=== PATIENT | male | born 1935 | race American Indian/Alaskan Native ===

== ENCOUNTER 2018-03-10 07:34 | Emergency (ER) | payer MEDICARE, OTHER ==
[~2018-03-10] VITALS: Ht 167.6 cm; Wt 104.3 kg
[~2018-03-10 07:34] MED LIST: ASPI81EC PO; ATOR20 PO; CALC.25 PO; FOLI1 PO; GEMF600 PO; GLIP5 PO; HYDACE5 PO; LISI20 PO; LORA10ER PO; MECL25 PO; METO50ER PO; OMEG1CAP30 PO; PIOG15 PO; SODBIC650 PO; SPIHYD PO
[2018-03-10] MEDS ORDERED: Travatan Z5 ML OP (07:56)
[2018-03-10] MEDS ORDERED: CYCL0.05OP (07:56)
[2018-03-10] MEDS ORDERED: INSULANPEN SC (07:57)
== END 2018-03-10 09:10 | disposition home or self-care (01) ==
LOC: ER 07:34
DX: S50.01XA Contusion of right elbow, initial encounter (principal); W01.0XXA Fall on same level from slipping, tripping and stumbling without subsequent striking against object, initial encounter; Z88.8 Allergy status to other drugs, medicaments and biological substances; Z79.899 Other long term (current) drug therapy; Z79.82 Long term (current) use of aspirin; Z79.891 Long term (current) use of opiate analgesic; E78.00 Pure hypercholesterolemia, unspecified; E11.9 Type 2 diabetes mellitus without complications; Z87.891 Personal history of nicotine dependence
CPT/HCPCS: 73070; 99283-25

== ENCOUNTER 2018-09-02 17:10 | Emergency (ER) | payer MEDICARE, OTHER ==
[~2018-09-02] VITALS: Ht 167.6 cm; Wt 100.7 kg
[~2018-09-02 17:10] MED LIST changes: +CYCL0.05OP; +INSULANPEN SC; +Travatan Z5 ML OP; +Zithromax250 MG PO
[2018-09-02] MEDS ORDERED: CEPH500 PO (19:57)
== END 2018-09-02 20:26 | disposition home or self-care (01) ==
LOC: ER 17:10
DX: S51.811A Laceration without foreign body of right forearm, initial encounter (principal); M25.511 Pain in right shoulder; W01.198A Fall on same level from slipping, tripping and stumbling with subsequent striking against other object, initial encounter; Z88.7 Allergy status to serum and vaccine; Z88.8 Allergy status to other drugs, medicaments and biological substances; Z79.899 Other long term (current) drug therapy; Z79.82 Long term (current) use of aspirin; Z79.891 Long term (current) use of opiate analgesic; Z79.4 Long term (current) use of insulin; E78.00 Pure hypercholesterolemia, unspecified; I12.9 Hypertensive chronic kidney disease with stage 1 through stage 4 chronic kidney disease, or unspecified chronic kidney disease; E11.22 Type 2 diabetes mellitus with diabetic chronic kidney disease; N18.9 Chronic kidney disease, unspecified; Z87.891 Personal history of nicotine dependence
CPT/HCPCS: 73030; 99283

== ENCOUNTER 2021-11-09 16:22 | Emergency (ER) | payer MEDICARE, OTHER ==
[~2021-11-09] VITALS: Ht 167.6 cm; Wt 90.7 kg
[~2021-11-09 16:22] MED LIST changes: +CEPH500 PO
[2021-11-09 16:50] LABS: BASOPHILS ABSOLUTE AUTO 0.08 K/mm3 (0.00-0.23); BASOPHILS PERCENT AUTO 1 % (0-2); EOSINOPHILS PERCENT AUTO 2 % (0-6); Hematocrit 46.1 % (37.0-53.0); Hemoglobin 15.4 g/dL (13.5-17.5); IMMATURE GRAN ABSOLUTE AUTO 0.05 K/mm3 (0.00-0.10); IMMATURE GRAN PERCENT AUTO 1 % (0-1); LYMPHOCYTES ABSOLUTE AUTO 1.32 K/mm3 (0.84-5.20); LYMPHOCYTES PERCENT AUTO 12 % (21-46); MONOCYTES ABSOLUTE AUTO 0.95 K/mm3 (0.16-1.47); MONOCYTES PERCENT AUTO 9 % (4-13); Mean Corpuscular HGB 32.8 pg (26.0-34.0); Mean Corpuscular HGB Conc 33.4 g/dL (31.5-36.5); Mean Corpuscular Volume 98 fL (80-100); Mean Platelet Volume 11.5 fL (9.1-12.4); NEUTROPHILS ABSOLUTE AUTO 8.41 K/mm3 (1.96-9.15); NEUTROPHILS PERCENT AUTO 76 % (41-73); Platelet Count 254 K/mm3 (150-400); RDW Coefficient Variation 13.6 % (11.7-14.2); RDW Standard Deviation 49.2 fL (35.1-46.3); White Blood Cell Count 11.01 K/mm3 (4.00-11.30)
[2021-11-09 17:09] LABS: Albumin, Blood 3.6 g/dL (3.4-5.0); Albumin/Globulin Ratio 0.8 (0.8-1.8); Bilirubin, Total 0.3 mg/dL (0.1-1.0); Bun/Creatinine Ratio 22.4 (12.0-20.0); Calcium, Blood 9.3 mg/dL (8.5-10.1); Creatinine, Blood 3.12 mg/dL (0.60-1.20); Globulin, Blood 4.6 g/dL (2.2-4.0); Potassium, Blood 4.1 mmol/L (3.5-5.5); Total Protein, Blood 8.2 g/dL (6.4-8.2)
[2021-11-09 18:25] LABS: Source, Urine Clean Catch
[2021-11-09 18:30] LABS: Appearance, Urine Hazy (Clear); Bilirubin, Urine Neg (Neg); Blood, Urine 5+ (Neg); Color, Urine Yellow (P-Yellow); Glucose Qualitative, Urine Neg (Neg); Ketones, Urine Neg (Neg); Leukocyte Esterase, Urine Neg (Neg); Nitrite, Urine Neg (Neg); Protein, Urine 4+ (Neg); Urobilinogen, Urine NORM (Normal)
[2021-11-09 18:34] LABS: Bacteria Few /hpf; Hyaline Casts 0-2 /lpf (0-2); Red Blood Cells, Urine 50-100 /hpf (0-2); Squamous Epithelial Cells Few /hpf (Few); White Blood Cells, Urine 0-2 /hpf (0-5)
[2021-11-09] MEDS ORDERED: ONDA4ODT MM (19:10)
[2021-11-09] MEDS ORDERED: TAMS.4ER PO (19:11)
== END 2021-11-09 21:19 | disposition home or self-care (01) ==
LOC: ER 16:22
PROVIDERS: Physician Assistant
DX: N13.30 Unspecified hydronephrosis (principal); R31.29 Other microscopic hematuria; N50.812 Left testicular pain; E11.22 Type 2 diabetes mellitus with diabetic chronic kidney disease; I12.9 Hypertensive chronic kidney disease with stage 1 through stage 4 chronic kidney disease, or unspecified chronic kidney disease; N18.9 Chronic kidney disease, unspecified; E78.5 Hyperlipidemia, unspecified; Z87.891 Personal history of nicotine dependence; Z79.82 Long term (current) use of aspirin; Z79.899 Other long term (current) drug therapy; Z79.4 Long term (current) use of insulin
CPT/HCPCS: 36415; 74176; 76870; 80053; 81001; 85025; J1170; J2405; J7030

== ENCOUNTER → 2022-01-11 | Outpatient (CLI) | payer MEDICARE, OTHER ==
[~2022-01-11] MED LIST changes: +ONDA4ODT MM; +TAMS.4ER PO
[2022-01-11 16:53] LABS: Bun/Creatinine Ratio 20.4 (12.0-20.0); Calcium, Blood 8.5 mg/dL (8.5-10.1); Creatinine, Blood 5.15 mg/dL (0.60-1.20); Potassium, Blood 4.4 mmol/L (3.5-5.5)
== END ==
LOC: LAB SHORT 15:30
PROVIDERS: Physician Assistant
DX: R19.7 Diarrhea, unspecified (principal)
CPT/HCPCS: 80048

== ENCOUNTER → 2022-01-12 | Outpatient (CLI) | payer MEDICARE, OTHER ==
[2022-01-14 12:49] LABS: Adenovirus F 40/41 Not Detected (NOT DETECT); Astrovirus Not Detected (NOT DETECT); Campylobacter Sp Not Detected (NOT DETECT); Cryptosporidium Not Detected (NOT DETECT); Cyclospora Cayetanensis Not Detected (NOT DETECT); E. Coli O157 Not Detected (NOT DETECT); Entamoeba Histolytica Not Detected (NOT DETECT); Enteroaggregative E. coli-EAEC Not Detected (NOT DETECT); Enteropathogenic E. coli-EPEC Not Detected (NOT DETECT); Enterotoxigenic E. coli-ETEC Not Detected (NOT DETECT); Giardia Lamblia Not Detected (NOT DETECT); Norovirus GI/GII Not Detected (NOT DETECT); Plesiomonas Shigelloides Not Detected (NOT DETECT); Rotavirus A Not Detected (NOT DETECT); Salmonella Sp Not Detected (NOT DETECT); Sapovirus Not Detected (NOT DETECT); Shiga Toxin-prod E. coli-STEC Not Detected (NOT DETECT); Shigella/Enteroin E. coli-EIEC Not Detected (NOT DETECT); Vibrio Cholerae Not Detected (NOT DETECT); Vibrio Sp Not Detected (NOT DETECT); Yersinia Enterocolitica Not Detected (NOT DETECT)
== END | disposition home or self-care (01) ==
LOC: LAB 09:39 → LAB SHORT 09:39
PROVIDERS: Physician Assistant
DX: R19.7 Diarrhea, unspecified (principal)
CPT/HCPCS: 87507

== ENCOUNTER 2022-01-22 08:48 | Inpatient (IN) | payer MEDICARE, OTHER ==
[~2022-01-22] VITALS: Ht 167.6 cm; Wt 90.7 kg
[~2022-01-22 08:48] MED LIST changes: +ALLO300 PO; +ASPI81CH PO; -ASPI81EC PO; +DONEPEZIL HCL5 M1 PO; +FURO40 PO; +HYDROCHLOROTHIA25 MG PO; +MEMA10 PO; +METO50 PO
[2022-01-22 09:55] LABS: BASOPHILS ABSOLUTE AUTO 0.07 K/mm3 (0.00-0.23); BASOPHILS PERCENT AUTO 1 % (0-2); EOSINOPHILS ABSOLUTE AUTO 0.81 K/mm3 (0.00-0.68); EOSINOPHILS PERCENT AUTO 7 % (0-6); Hematocrit 38.4 % (37.0-53.0); IMMATURE GRAN ABSOLUTE AUTO 0.07 K/mm3 (0.00-0.10); IMMATURE GRAN PERCENT AUTO 1 % (0-1); LYMPHOCYTES ABSOLUTE AUTO 1.06 K/mm3 (0.84-5.20); LYMPHOCYTES PERCENT AUTO 10 % (21-46); MONOCYTES ABSOLUTE AUTO 0.77 K/mm3 (0.16-1.47); MONOCYTES PERCENT AUTO 7 % (4-13); Mean Corpuscular HGB 33.2 pg (26.0-34.0); Mean Corpuscular HGB Conc 33.9 g/dL (31.5-36.5); Mean Corpuscular Volume 98 fL (80-100); Mean Platelet Volume 11.5 fL (9.1-12.4); NEUTROPHILS ABSOLUTE AUTO 8.17 K/mm3 (1.96-9.15); NEUTROPHILS PERCENT AUTO 75 % (41-73); Platelet Count 243 K/mm3 (150-400); RDW Coefficient Variation 14.7 % (11.7-14.2); Red Blood Cell Count 3.92 M/mm3 (4.30-5.90); White Blood Cell Count 10.95 K/mm3 (4.00-11.30)
[2022-01-22 10:27] LABS: Albumin, Blood 2.9 g/dL (3.4-5.0); Albumin/Globulin Ratio 0.6 (0.8-1.8); Bilirubin, Total 0.2 mg/dL (0.1-1.0); Bun/Creatinine Ratio 20.8 (12.0-20.0); Calcium, Blood 8.7 mg/dL (8.5-10.1); Creatinine, Blood 6.64 mg/dL (0.60-1.20); Globulin, Blood 4.6 g/dL (2.2-4.0); Potassium, Blood 6.3 mmol/L (3.5-5.5); Total Protein, Blood 7.5 g/dL (6.4-8.2)
[2022-01-22] MEDS ORDERED: ACIT10CA PO (11:08)
[2022-01-22] MEDS ORDERED: VITAMIN D325 MC3 PO (11:09)
[2022-01-22] MEDS ORDERED: FOLI1 PO (11:10)
[2022-01-22] MEDS ORDERED: SYNTHROID PO (11:10)
[2022-01-22] MEDS ORDERED: MERIBIN5 MG PO (11:10)
[2022-01-22] MEDS ORDERED: LIPITOR80 MG PO (11:11)
[2022-01-22] MEDS ORDERED: DOCU100 PO (11:12)
[2022-01-22] MEDS ORDERED: FISH OIL GUMMI1 EAC1 PO (11:12)
[2022-01-22] MEDS ORDERED: CYCL0.05OP BOTHEYES (11:22)
[2022-01-22] MEDS ORDERED: APHEN325 M2 PO (11:22)
[2022-01-22] MEDS ORDERED: LOW DOSE ASPIRI81 M1 PO (11:24)
[2022-01-22] MEDS ORDERED: INSULANI SC (11:24)
[2022-01-22] MEDS ORDERED: HYDROCODONE-AC1 EAC7 PO (11:25)
--- NOTE | 2022-01-22 14:18 | NUR ---
ASSUMED CARE: PT ARRIVES FROM ED. PERMACATH TO RIGHT CHEST PLACED YESTERDAY PER DR CARROLL. DIALYSIS NURSE CALLED AND STATED SHE WOULD BE IN TO RUN PT FOR DIALYSIS SHORTLY. CALL TO HOSPITALIST TO VERIFY IF TELE IS NEEDED. OCTAVIO STATES NO TELE NEEDED AT THIS TIME. PT C/O ACHING T/O AND STATES HISTORY OF ARTHRITIC PAIN. HOME PAIN MEDS REORDERED. DISCUSSED CURRENT ORDERS WITH PT AND AND INSTRUCTED TO BRING IN HOME MEDS. CALL LIGHT IN REACH, DENIED FURTHER NEEDS OR CONCERNS AT THIS TIME.
--- NOTE | 2022-01-22 18:13 | NUR ---
SHIFT SUMMARY: PT RECIEVED DIALYSIS THIS EVENING. CHART CHANGER AWARE THAT PT IS NEW DIALYSIS PT SO THAT A CHAIR TIME AT [facility] CAN BE ESTABLISHED. PT'S EVENING CBG WAS IN 70S. CALL TO DR JENKINS WHO STATED TO HOLD EVENING DOSE, RECHECK CBG AT HS AND ADMINISTER LONG ACTING INSULIN THEN IF CBG INCREASED. ALSO INSTRUCTS TO CHECK CBG AT 3AM. ORDER IN PLACE. AT BEDSIDE. NO ACUTE NEEDS OR CONCERNS AT THIS TIME.
--- NOTE | 2022-01-23 03:22 | NUR ---
PT ALERT TO SELF, PLACE AND SITUATION. PT STATES IT IS FEBRUARY 1969 AND WHEN GIVEN THE CORRECT DATE HE STATES "ITS NOT TOO FAR OFF." PT IS NOTED TO BE VERY IMPATIENT AND DEMANDING. HE IS IMPULSIVE AND DOES NOT USE HIS CALL LIGHT. PT STATING MULTIPLE TIMES THAT HE IS ALONE IN HIS ROOM. EXPLAINED THAT STAFF WOULD CHECK ON HIM OFTEN AND SHOWN HOW TO USE CALL LIGHT. WHEN BED ALARM GOES OFF PT STATES HE WAS NOT SHOWN HOW TO CALL AND THEN WHEN REMINDED HE STATES HE PRESSED IT BUT "IT DIDN'T WORK." PT NOTED VERY ANXIOUS AT BEDTIME DEMANDING SOMETHING TO "PUT HIM OUT" BC HE CAN'T SLEEP. HE STATES AT HOME HE DOES NOT TAKE ANYTHING BUT BEING IN THE HOSPITAL ALONE IS DIFFERENT. DR. PALACIOS NOTIFIED WITH ORDER OF MELATONIN X1 WITH GOOD EFFECT. PT UNSTEADY WITH WALKER. VOIDING W/ISSUE. PERMA CATH TO RIGHT CHEST INTACT.
[2022-01-23 05:53] LABS: Hematocrit 35.1 % (37.0-53.0); Hemoglobin 12.2 g/dL (13.5-17.5)
[2022-01-23 06:19] LABS: Albumin, Blood 2.7 g/dL (3.4-5.0); Anion Gap 13 mmol/L (6-16); Blood Urea Nitrogen 85 mg/dL (8-24); Bun/Creatinine Ratio 18.6 (12.0-20.0); CO2, Blood 25 mmol/L (21-32); Calcium, Blood 8.5 mg/dL (8.5-10.1); Chloride, Blood 101 mmol/L (98-108); Creatinine, Blood 4.56 mg/dL (0.60-1.20); Glomerular Filtration Rate 12 (60-); Glucose, Blood 134 mg/dL (70-99); Magnesium, Blood 1.5 mg/dL (1.6-2.4); Phosphorus, Blood 6.1 mg/dL (2.5-4.9); Potassium, Blood 4.2 mmol/L (3.5-5.5); Sodium, Blood 139 mmol/L (136-145)
--- NOTE | 2022-01-23 17:36 | NUR ---
PT AOX3 AND COOPERATIVE OF CARE. PT WILL USE CALL LIGHT AND THEN OTHER TIMES CAN BE IMPULSIVE. PT HAS BED ALARM IN PLACE. DIALYSIS WAS RAN TODAY AND PT SEEMED TO TOLERATE WELL. PT DENIES PAIN AT THIS TIME WILL CONTINUE TO MONITOR.
[2022-01-24 05:17] LABS: Hematocrit 36.1 % (37.0-53.0); Hemoglobin 12.4 g/dL (13.5-17.5)
[2022-01-24 05:36] LABS: Albumin, Blood 2.6 g/dL (3.4-5.0); Anion Gap 10 mmol/L (6-16); Blood Urea Nitrogen 57 mg/dL (8-24); Bun/Creatinine Ratio 14.2 (12.0-20.0); CO2, Blood 31 mmol/L (21-32); Calcium, Blood 8.7 mg/dL (8.5-10.1); Chloride, Blood 97 mmol/L (98-108); Glomerular Filtration Rate 14 (60-); Glucose, Blood 135 mg/dL (70-99); Magnesium, Blood 1.8 mg/dL (1.6-2.4); Phosphorus, Blood 5.4 mg/dL (2.5-4.9); Potassium, Blood 3.9 mmol/L (3.5-5.5); Sodium, Blood 138 mmol/L (136-145)
--- NOTE | 2022-01-24 06:46 | NUR ---
PT REMAINS ALERT TO SELF AND PLACE. MOOD FLUCTUATES GREATLY AT TIMES PT IS VERY APPROACHABLE AND OTHERS PT IS YELLING, IMPATIENT AND DEMANDS THINGS BE DONE NOW. PT DOES NOT UNDERSTAND THAT THERE ARE OTHER PTS AND WHEN TOLD THIS PT REPLIES THAT HE IS THE ONLY ONE AWAKE NOW. OTHERWISE NO NEW CHANGES T/O SHIFT. UNSTEADY DURING NIGHTS AND BED ALARM IN PLACE. PT IS IMPULSIVE AND DOES NOT CALL.
[2022-01-24] MEDS ORDERED: FURO40 PO (12:20)
[2022-01-24] MEDS ORDERED: CALCIUM ACETAT667 MG PO (12:21)
--- NOTE | 2022-01-24 13:01 | NUR ---
DISCHARGE PT A&OX3, SPOUSE @ BEDSIDE DURING DC DIRECTION. PROVIDED W/ WRITTEN AND VERBAL DIRECTION, VERBALIZED UNDERWSTANDING. SKIN TEAR TO R FA REDRESSED AND IV DC'ED. PT ESCORTED TO [facility] VIA WC BY DALIA GONZALEZ. SPOUSE TO PROVIDE TRANSPORT, PLAN FOR HD APPT @ 7721.
[2022-01-25 00:07] LABS: HBSAG SCREEN Negative (Negative); HCV AB 0.1 (0.0-0.9); HEP A AB, IGM Negative (Negative); HEP B CORE AB, TOT Negative (Negative)
== END 2022-01-24 12:58 | disposition home or self-care (01) | DRG 683 ==
LOC: ER 08:48 → MEDS 08:49
PROVIDERS: Internal Medicine; Internal Medicine Nephrology; Physician Assistant; ADMIT Hospitalist
PROC: 5A1D70Z Performance of Urinary Filtration, Intermittent, Less than 6 Hours Per Day (ICD-10-PCS; principal; 2022-01-23)
DX: N17.9 Acute kidney failure, unspecified (principal); E87.2 Acidosis; I12.0 Hypertensive chronic kidney disease with stage 5 chronic kidney disease or end stage renal disease; N18.6 End stage renal disease; E11.22 Type 2 diabetes mellitus with diabetic chronic kidney disease; N40.0 Benign prostatic hyperplasia without lower urinary tract symptoms; E78.5 Hyperlipidemia, unspecified; E87.5 Hyperkalemia; D63.1 Anemia in chronic kidney disease; E03.9 Hypothyroidism, unspecified; F03.90 Unspecified dementia, unspecified severity, without behavioral disturbance, psychotic disturbance, mood disturbance, and anxiety; E78.00 Pure hypercholesterolemia, unspecified; H18.519 Endothelial corneal dystrophy, unspecified eye; G89.29 Other chronic pain; Z87.891 Personal history of nicotine dependence; Z90.49 Acquired absence of other specified parts of digestive tract; Z98.890 Other specified postprocedural states; Z88.7 Allergy status to serum and vaccine; Z88.8 Allergy status to other drugs, medicaments and biological substances; Z79.4 Long term (current) use of insulin; Z79.899 Other long term (current) drug therapy
CPT/HCPCS: 36415; 71045; 80053; 80069; 82947; 83735; 85014; 85018; 85025; 86317; 86704; 86708; 86803; 87340; 93005; 93010; 96365; 96372; 99284-25; A9270; G0378; J1644; J1815; J3475; J7060; J7799

== ENCOUNTER 2022-03-01 14:25 | Inpatient (IN) | payer MEDICARE, OTHER ==
[~2022-03-01] VITALS: Ht 167.6 cm; Wt 90.7 kg
[~2022-03-01 14:25] MED LIST changes: +ACIT10CA PO; +APHEN325 M2 PO; +CALCIUM ACETAT667 MG PO; +CYCL0.05OP BOTHEYES; +DOCU100 PO; +FISH OIL GUMMI1 EAC1 PO; +HYDROCODONE-AC1 EAC7 PO; +INSULANI SC; +LIPITOR80 MG PO; -LISI20 PO; +LOW DOSE ASPIRI81 M1 PO; +MERIBIN5 MG PO; +Prinivil10 MG PO; +SYNTHROID PO; +VITAMIN D325 MC3 PO
[2022-03-01 14:56] LABS: BASOPHILS ABSOLUTE AUTO 0.06 K/mm3 (0.00-0.23); BASOPHILS PERCENT AUTO 1 % (0-2); EOSINOPHILS ABSOLUTE AUTO 0.12 K/mm3 (0.00-0.68); EOSINOPHILS PERCENT AUTO 2 % (0-6); Hematocrit 35.8 % (37.0-53.0); Hemoglobin 12.5 g/dL (13.5-17.5); IMMATURE GRAN ABSOLUTE AUTO 0.01 K/mm3 (0.00-0.10); IMMATURE GRAN PERCENT AUTO 0 % (0-1); LYMPHOCYTES ABSOLUTE AUTO 0.89 K/mm3 (0.84-5.20); LYMPHOCYTES PERCENT AUTO 12 % (21-46); MONOCYTES PERCENT AUTO 8 % (4-13); Mean Corpuscular HGB Conc 34.9 g/dL (31.5-36.5); Mean Corpuscular Volume 97 fL (80-100); NEUTROPHILS ABSOLUTE AUTO 5.52 K/mm3 (1.96-9.15); NEUTROPHILS PERCENT AUTO 77 % (41-73); Platelet Count 227 K/mm3 (150-400); RDW Coefficient Variation 13.5 % (11.7-14.2); RDW Standard Deviation 47.5 fL (35.1-46.3); Red Blood Cell Count 3.68 M/mm3 (4.30-5.90)
[2022-03-01 15:32] LABS: Albumin, Blood 3.4 g/dL (3.4-5.0); Albumin/Globulin Ratio 0.8 (0.8-1.8); Bilirubin, Total 0.3 mg/dL (0.1-1.0); Bun/Creatinine Ratio 10.3 (12.0-20.0); Calcium, Blood 9.1 mg/dL (8.5-10.1); Creatinine, Blood 3.12 mg/dL (0.60-1.20); Globulin, Blood 4.1 g/dL (2.2-4.0); Potassium, Blood 3.9 mmol/L (3.5-5.5); Total Protein, Blood 7.5 g/dL (6.4-8.2)
[2022-03-01 20:49] LABS: Anti-Xa UFH, PHA Monitoring <0.10 IU/mL; International Normalized Ratio 1.05
--- NOTE | 2022-03-02 00:55 | NUR ---
PT ARRIVED TO THE FLOOR AROUND 2124 PT WAS VERY AGITATED AND SAID HE HAD TO URINATE. GAVE URINAL AND HAD PT STAT AT SIDE OF RFORT HOWARD PT DID STUMBLE AND WAS UNSTEADY. PT GOT UPSET BECAUSE IV LINE WAS TANGLED IN CORDS FOR MONITOR RN ATTEMPTING TO GET IT UNTANGLED AND PT STARTED YELLING THAT HE WANTED TO PEE AND GO TO THE BATHROOM AND EVERYONE GET OUT OF HIS ROOM AND HE THREW THE URINAL AT THE GURNEY. RN ASKED PT TO PLEASE SIT DOWN HE WAS WABBLING WHILE STANDING. PT GOT MORE AGITATED WAS SAYING STAFF WAS RUDE AND JUST TRYING TO BOSS HIM AROUND AND NOT LET HIM GO TO THE BATHROOM. RN TALKED WITH PT EDUCATED ABOUT HEPARIN GTTS AND THAT HE WAS IN HOSPITAL FOR NSTEMI AND HAD TO BE CAREFUL HE WAS UNSTEADY AND HE COULD FALL OR PULL OUT IV SO NEEDED TO ASSIST HIM TO THE BATHROOM. PT TOLD RN TO PUT HIM IN THE BED AND GET OUT OF HIS ROOM AND ONCE RN WAS GONE HE WOULD PULL OUT IV AND ALL LINES AND GO TO THE BATHROOM. RN TALKED ABOUT SAFETY BUT PT WAS AGITATED AND NOT COOPERATIVE. ACCESS SERVICES LIBRARIAN CAME IN AND TALKED WITH PT AND TRIED TO COMPRIMISE ASKING IF PT WOULD SIT ON COMMODE AND STAFF WOULD STEP OUT OR SIT ON TOILET SO HE WOULDNT FALL. PT SAID SURE ILL SIT AND WHEN YOU CLOSE THE DOOR ILL STAND UP AND PEE. SECURITY CAME IN PT WAS YELLING AND TELLING STAFF TO GET THE HELL OUT OF HIS ROOM. SECURITY ESCORTED PT TO THE BATHROOM. PT URINATED AND WAS ASSISTED BACK TO BED BY RN. 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 RN EXPLAINED AGAIN THAT IT WAS FOR HIS SAFETY SO THAT IV WAS NOT ACCIDENTLY DISLODGED CAUSING BLEEDING AND RISK OF INFECTION ALSO EXPLAINED THAT GIVEN HE WAS THERE FOR NSTEMI HE WAS UNSTEADY AND COULD POTENTIALLY FALL. PT DID NOT AGREE FELT STAFF WAS BEING UNREASONABLY BOSSY AND MEAN. WILL CONTINUE TO MONITOR AND EDUCATE PT ALLOWS. PT IN BED ON LEFT SIDE. BED ALARM IN PLACE.
--- NOTE | 2022-03-02 01:04 | NUR ---
PT NOW PLEASANT AND COOPERATIVE WITH STAFF. NO LONGER AGITATED. HE IS ORIENTED X 4 AND GIVES ACCURATE HEALTH HISTORY. WILL CONTINUE TO MONITOR PT.
[2022-03-02 03:27] LABS: BASOPHILS ABSOLUTE AUTO 0.09 K/mm3 (0.00-0.23); BASOPHILS PERCENT AUTO 1 % (0-2); EOSINOPHILS PERCENT AUTO 4 % (0-6); Hematocrit 33.6 % (37.0-53.0); Hemoglobin 11.2 g/dL (13.5-17.5); IMMATURE GRAN ABSOLUTE AUTO 0.03 K/mm3 (0.00-0.10); IMMATURE GRAN PERCENT AUTO 0 % (0-1); LYMPHOCYTES ABSOLUTE AUTO 2.04 K/mm3 (0.84-5.20); LYMPHOCYTES PERCENT AUTO 24 % (21-46); MONOCYTES ABSOLUTE AUTO 1.15 K/mm3 (0.16-1.47); MONOCYTES PERCENT AUTO 14 % (4-13); Mean Corpuscular HGB 33.2 pg (26.0-34.0); Mean Corpuscular HGB Conc 33.3 g/dL (31.5-36.5); Mean Corpuscular Volume 100 fL (80-100); Mean Platelet Volume 11.1 fL (9.1-12.4); NEUTROPHILS ABSOLUTE AUTO 4.75 K/mm3 (1.96-9.15); NEUTROPHILS PERCENT AUTO 57 % (41-73); Platelet Count 205 K/mm3 (150-400); RDW Coefficient Variation 13.3 % (11.7-14.2); RDW Standard Deviation 48.9 fL (35.1-46.3); Red Blood Cell Count 3.37 M/mm3 (4.30-5.90); White Blood Cell Count 8.36 K/mm3 (4.00-11.30)
[2022-03-02 03:44] LABS: Albumin/Globulin Ratio 0.8 (0.8-1.8); Bilirubin, Total 0.3 mg/dL (0.1-1.0); Bun/Creatinine Ratio 10.8 (12.0-20.0); Calcium, Blood 8.7 mg/dL (8.5-10.1); Creatinine, Blood 3.79 mg/dL (0.60-1.20); Globulin, Blood 3.6 g/dL (2.2-4.0); Magnesium, Blood 1.9 mg/dL (1.6-2.4); Phosphorus, Blood 5.2 mg/dL (2.5-4.9); Potassium, Blood 3.6 mmol/L (3.5-5.5); Total Protein, Blood 6.6 g/dL (6.4-8.2)
--- NOTE | 2022-03-02 05:35 | NUR ---
PT NEW ADMIT FROM ER LAST NIGHT NSTEMI. ON HEPARIN GTT AT 14 UNITS. CARDIOLOGY TO SEE HIM TODAY POSSIBLY GO FOR ANGIOGRAM. PT HAS BEEN NPO SINCE 0000. PT GETS EASILY AGITATED. HE IS SBA TO THE BATHROOM VOIDS IN TOILET REFUSES TO USE URINAL AND DOES NOT WANT HAT IN TOILET EITHER. VS STABLE. WILL GIVE REPORT TO ONCOMING RN.
[2022-03-02 10:12] LABS: SARS-Cov-2 (COVID-19) PCR, MMC NEGATIVE (NEGATIVE)
--- NOTE | 2022-03-02 10:15 | NUR ---
NURSING PCU DAYSHIFT: Assumed care of pt at approx 0700. A/O, initially abrupt with nursing/pct staff and only cooperative w/some aspects of care. Stated desire to leave, discussed leaving AMA option and expectations in behavior w/staff if pt is to remain in unit for care. Pt verbalized understanding and has been cooperative t/o remainder of morning. Ambulates independently and only requires assistance for line management, gate steady. Denies any pain/discomfort at rest. Skin fragile/pale, no significant breakdown noted. Allowed limited assesment to be performed. Tele in place, NSR, no c/o CP/pressure, SBP 170's prior to a.m. meds, no noted edema. L/S cta t/o, O2 sat upper 90's on RA, denies dyspnea, no noted cough. No reported difficulties voiding, last BM was this a.m. PIV x1, hep gtt infusing as per pharmacy dosing. No s/s of acute distress this a.m. PMD and property adjuster at bedside to discuss plan of care. Plan for angiogram this a.m. S/O currently at bedside, denies any questions/needs. Call light in reach, cont to monitor for any changes.
--- NOTE | 2022-03-02 17:09 | NUR ---
NURSING PCU DAYSHIFT SUMMARY: Pt to HC at approx 1100, returned to room at approx 1200 w/TR band and wrist board to R radial. Software Test Analyst at bedside to provide pt, spouse, and daugther w/an update regarding plan for f/u angiogram either 03/03 or 03/04. Family verbalized understanding. HD started in room after angiogram, pt tolerated well. R radial site has remained stable since procedure, deflation began at completion of HD (approx 1645). VS have remained stable and pt has been w/o c/o CP/pressure. No s/s of acute distress at this time. Pt denies any current needs or questions regarding plan of care. Call light in reach. Cont to monitor until rpt is given to ENMA RN.
[2022-03-03 01:18] LABS: Hematocrit 33.5 % (37.0-53.0); Hemoglobin 11.1 g/dL (13.5-17.5)
[2022-03-03 01:34] LABS: Albumin, Blood 2.9 g/dL (3.4-5.0); Anion Gap 8 mmol/L (6-16); Blood Urea Nitrogen 32 mg/dL (8-24); Bun/Creatinine Ratio 9.2 (12.0-20.0); CO2, Blood 32 mmol/L (21-32); Calcium, Blood 8.9 mg/dL (8.5-10.1); Chloride, Blood 97 mmol/L (98-108); Creatinine, Blood 3.48 mg/dL (0.60-1.20); Glomerular Filtration Rate 16 (60-); Glucose, Blood 166 mg/dL (70-99); Magnesium, Blood 1.6 mg/dL (1.6-2.4); Phosphorus, Blood 3.9 mg/dL (2.5-4.9); Potassium, Blood 4.1 mmol/L (3.5-5.5); Sodium, Blood 137 mmol/L (136-145)
--- NOTE | 2022-03-03 05:07 | NUR ---
HOT ROOM ATTENDANT SUMMARY PT IS ALERT AND ORIENTED COMMUNICATING APPROPRIATELY W STAFF THIS SHIFT. PT HAS DENIED ANY CP, PRESSURE, NAUSEA OR DIZZINESS THIS SHIFT. PT DID REPORT SOME MILD GENERALIZED PAIN AT THE START OF THE SHIFT WHICH WAS RESOLVED W MEDICATION PER EMAR. BP WNL AND STABLE THIS SHIFT. TELE SHOWING SR IN THE 80'S THIS SHIFT. TR BAND OFF AT THE START OF THE SHIFT, PT DEVELOPED SMALL HEMATOMA ON WRIST INITIALLY BUT DID NOT GET WORSE OVER THE SHIFT. PT DENIED ANY PAIN OR TENDERNESS AROUND ANGIO SITE. O2 SATS >90% ON RM AIR THIS SHIFT. PT NPO SINCE MIDNIGHT FOR POSSIBLE PROCEDURE. WILL REPORT TO ONCOMING RN.
--- NOTE | 2022-03-03 16:28 | NUR ---
REPORT CALLED TO NICOLA AT [facility]. NOTIFIED OF RECIEVING ROOM FOR PATIENT. NEW BAG OF HEPARIN INFUSING IN PREPARTION FOR FLIGHT. ALL PT BELONGINGS PACKED UP TO GO WITH HIM. PT HAS DECLINED ANY CHEST PAIN OR SOB. R RADIAL SITE REMAINS BRUISED BUT NO CHANGES SINCE PREVIOUS SHIFT OUTLINES. PT TOLERATING PO WELL AND HAS BEEN COOPERATIVE WITH CARE TODAY.
--- NOTE | 2022-03-03 17:07 | NUR ---
PT LEFT WITH REACH TEAM AT THIS TIME. REPORT GIVEN TO NIKOLAY WITH REACH. ALL BELONGINGS SENT WITH PATIENT.
== END 2022-03-03 17:06 | disposition short-term general hospital (02) | DRG 280 ==
LOC: ER 14:25 → PCU 19:22
PROVIDERS: Internal Medicine Interventional Cardiology; Internal Medicine Nephrology; Nurse Practitioner Acute Care; Student in an Organized Health Care Education/Training Program; ADMIT Family Medicine
PROC: 02HV33Z Insertion of Infusion Device into Superior Vena Cava, Percutaneous Approach (ICD-10-PCS; 2022-03-01)
PROC: 02JA3ZZ Inspection of Heart, Percutaneous Approach (ICD-10-PCS; principal; 2022-03-02)
PROC: 4A023N6 Measurement of Cardiac Sampling and Pressure, Right Heart, Percutaneous Approach (ICD-10-PCS; 2022-03-02)
PROC: B2111ZZ Fluoroscopy of Multiple Coronary Arteries using Low Osmolar Contrast (ICD-10-PCS; 2022-03-02)
PROC: 5A1D70Z Performance of Urinary Filtration, Intermittent, Less than 6 Hours Per Day (ICD-10-PCS; 2022-03-02)
DX: I21.4 Non-ST elevation (NSTEMI) myocardial infarction (principal); N18.6 End stage renal disease; F11.20 Opioid dependence, uncomplicated; I12.0 Hypertensive chronic kidney disease with stage 5 chronic kidney disease or end stage renal disease; F03.91 Unspecified dementia, unspecified severity, with behavioral disturbance; N25.81 Secondary hyperparathyroidism of renal origin; E87.1 Hypo-osmolality and hyponatremia; E78.00 Pure hypercholesterolemia, unspecified; G89.29 Other chronic pain; I25.10 Atherosclerotic heart disease of native coronary artery without angina pectoris; E03.9 Hypothyroidism, unspecified; M10.9 Gout, unspecified; N40.0 Benign prostatic hyperplasia without lower urinary tract symptoms; E11.22 Type 2 diabetes mellitus with diabetic chronic kidney disease; I35.0 Nonrheumatic aortic (valve) stenosis; I24.9 Acute ischemic heart disease, unspecified; I48.91 Unspecified atrial fibrillation; E87.70 Fluid overload, unspecified; Z20.822 Contact with and (suspected) exposure to COVID-19; H18.519 Endothelial corneal dystrophy, unspecified eye; D63.1 Anemia in chronic kidney disease; Z90.49 Acquired absence of other specified parts of digestive tract; Z98.890 Other specified postprocedural states; Z94.7 Corneal transplant status; Z79.899 Other long term (current) drug therapy; Z79.811 Long term (current) use of aromatase inhibitors; Z79.02 Long term (current) use of antithrombotics/antiplatelets; Z79.82 Long term (current) use of aspirin; Z87.891 Personal history of nicotine dependence; Z79.01 Long term (current) use of anticoagulants; Z79.4 Long term (current) use of insulin; Z99.2 Dependence on renal dialysis; Z88.8 Allergy status to other drugs, medicaments and biological substances; Z95.828 Presence of other vascular implants and grafts; Z88.7 Allergy status to serum and vaccine
CPT/HCPCS: 36415; 71045; 76937; 80053; 80069; 82947; 83735; 84100; 84484; 85014; 85018; 85025; 85347; 85520; 85610; 85730; 93005; 93010; 93308; 93321; 93454; 96365; 99152; 99153; 99285-25; A9270; C1725; C1751; C1769; C1887; C1894; J0461; J1644; J1815; J2250; J3010; J7030; J7040; Q9967; U0004

== ENCOUNTER 2022-05-22 16:01 | Inpatient (IN) | payer MEDICARE, OTHER ==
[~2022-05-22] VITALS: Ht 167.6 cm; Wt 87.9 kg
[~2022-05-22 16:01] MED LIST changes: +LEVSOD25 PO; -SYNTHROID PO
[2022-05-22 17:06] LABS: BASOPHILS ABSOLUTE AUTO 0.03 K/mm3 (0.00-0.23); BASOPHILS PERCENT AUTO 1 % (0-2); EOSINOPHILS ABSOLUTE AUTO 0.01 K/mm3 (0.00-0.68); EOSINOPHILS PERCENT AUTO 0 % (0-6); Hematocrit 35.3 % (37.0-53.0); Hemoglobin 11.9 g/dL (13.5-17.5); IMMATURE GRAN ABSOLUTE AUTO 0.03 K/mm3 (0.00-0.10); IMMATURE GRAN PERCENT AUTO 1 % (0-1); LYMPHOCYTES PERCENT AUTO 8 % (21-46); MONOCYTES PERCENT AUTO 12 % (4-13); Mean Corpuscular HGB 33.2 pg (26.0-34.0); Mean Corpuscular HGB Conc 33.7 g/dL (31.5-36.5); Mean Corpuscular Volume 99 fL (80-100); Mean Platelet Volume 10.8 fL (9.1-12.4); NEUTROPHILS ABSOLUTE AUTO 5.17 K/mm3 (1.96-9.15); NEUTROPHILS PERCENT AUTO 79 % (41-73); Platelet Count 199 K/mm3 (150-400); RDW Coefficient Variation 13.1 % (11.7-14.2); Red Blood Cell Count 3.58 M/mm3 (4.30-5.90); White Blood Cell Count 6.54 K/mm3 (4.00-11.30)
[2022-05-22 17:09] LABS: Source, Urine Voided
[2022-05-22 17:18] LABS: Appearance, Urine Clear (Clear); Bilirubin, Urine Neg (Neg); Blood, Urine 3+ (Neg); Color, Urine Yellow (P-Yellow); Glucose Qualitative, Urine Neg (Neg); Ketones, Urine Neg (Neg); Leukocyte Esterase, Urine Neg (Neg); Nitrite, Urine Neg (Neg); Protein, Urine 4+ (Neg); Specific Gravity, Urine 1.005 (1.003-1.022); Urobilinogen, Urine NORM (Normal)
[2022-05-22 17:19] LABS: Albumin, Blood 2.7 g/dL (3.4-5.0); Albumin/Globulin Ratio 0.6 (0.8-1.8); Bilirubin, Total 0.4 mg/dL (0.1-1.0); Calcium, Blood 8.8 mg/dL (8.5-10.1); Creatinine, Blood 3.21 mg/dL (0.60-1.20); Globulin, Blood 4.8 g/dL (2.2-4.0); Potassium, Blood 3.4 mmol/L (3.5-5.5); Total Protein, Blood 7.5 g/dL (6.4-8.2)
[2022-05-22 17:42] LABS: Bacteria Few /hpf; Renal Epithelial Rare /hpf (0-Rare); Squamous Epithelial Cells Few /hpf (Few)
[2022-05-22 18:19] LABS: Influenza A, PCR NEGATIVE (NEGATIVE); Influenza B, PCR NEGATIVE (NEGATIVE); Resp Syncytial Virus, PCR NEGATIVE (NEGATIVE)
[2022-05-22 19:41] LABS: SARS-Cov-2 (COVID-19) PCR, MMC POSITIVE (NEGATIVE)
[2022-05-22 22:04] LABS: Anti-Xa UFH, PHA Monitoring <0.10 IU/mL; International Normalized Ratio 1.14; Prothrombin Time Results 11.9 Sec (9.7-11.5)
[2022-05-22] MEDS ORDERED: ALLO100 PO (22:29)
[2022-05-22] MEDS ORDERED: CLOP75 PO (22:33)
[2022-05-22] MEDS ORDERED: MEMA10 PO (22:34)
[2022-05-22] MEDS ORDERED: SEVEC800 PO (22:35)
[2022-05-22] MEDS ORDERED: FURO40 PO (22:37)
[2022-05-22] MEDS ORDERED: INSULANI SC (22:40)
[2022-05-22] MEDS ORDERED: CARV6.25 PO (22:42)
[2022-05-22] MEDS ORDERED: GEMF600 PO (22:42)
[2022-05-22] MEDS ORDERED: Robaxin750 MG PO (22:45)
--- NOTE | 2022-05-23 04:36 | NUR ---
SHIFT SUMMARY PT IS ON 2L SATTING 93% ON CONT. BIOX. HE IS VERY LABILE AND AGTATED WITH STAFF ALL CARE IS CONDITIONAL ON WHETHER HE RECIEVES WHAT HE WANTS. PT WAS COMPLAINT WITH HEPARIN DRIP ONCE EXPLAINED RESONING FOR IT. HOWEVER PULLED IV LINE AND HDRIP HAD TO BE RESTARTED. PT CURRENTLY RESTING IN BED WITH CALL LIGHT IN REACH, STAFF DISRUPTING LITTLE POSSIBE DUE TO PTS POOR SLEEP LAST NIGHT.
[2022-05-23 06:04] LABS: BASOPHILS ABSOLUTE AUTO 0.01 K/mm3 (0.00-0.23); BASOPHILS PERCENT AUTO 0 % (0-2); EOSINOPHILS PERCENT AUTO 0 % (0-6); Hematocrit 31.6 % (37.0-53.0); Hemoglobin 10.6 g/dL (13.5-17.5); IMMATURE GRAN ABSOLUTE AUTO 0.02 K/mm3 (0.00-0.10); IMMATURE GRAN PERCENT AUTO 0 % (0-1); LYMPHOCYTES ABSOLUTE AUTO 0.42 K/mm3 (0.84-5.20); LYMPHOCYTES PERCENT AUTO 8 % (21-46); MONOCYTES ABSOLUTE AUTO 0.38 K/mm3 (0.16-1.47); MONOCYTES PERCENT AUTO 7 % (4-13); Mean Corpuscular HGB 33.7 pg (26.0-34.0); Mean Corpuscular HGB Conc 33.5 g/dL (31.5-36.5); Mean Corpuscular Volume 100 fL (80-100); Mean Platelet Volume 11.1 fL (9.1-12.4); NEUTROPHILS ABSOLUTE AUTO 4.77 K/mm3 (1.96-9.15); NEUTROPHILS PERCENT AUTO 85 % (41-73); Platelet Count 199 K/mm3 (150-400); RDW Coefficient Variation 13.2 % (11.7-14.2); RDW Standard Deviation 48.5 fL (35.1-46.3); Red Blood Cell Count 3.15 M/mm3 (4.30-5.90)
[2022-05-23 06:31] LABS: Albumin, Blood 2.5 g/dL (3.4-5.0); Albumin/Globulin Ratio 0.5 (0.8-1.8); Bilirubin, Total 0.5 mg/dL (0.1-1.0); Bun/Creatinine Ratio 14.3 (12.0-20.0); Calcium, Blood 8.8 mg/dL (8.5-10.1); Creatinine, Blood 3.84 mg/dL (0.60-1.20); Globulin, Blood 4.7 g/dL (2.2-4.0); Magnesium, Blood 1.9 mg/dL (1.6-2.4); Phosphorus, Blood 4.4 mg/dL (2.5-4.9); Thyroid Stimulating Hormone 0.451 uIU/mL (0.360-4.800); Total Protein, Blood 7.2 g/dL (6.4-8.2)
--- NOTE | 2022-05-23 07:30 | NUR ---
ASSUMED CARE: PT RESTING QUIETLY IN BED ON RA. DENIES NEEDS OR CONCERNS, RET[employer] SALES BEAUTY ADVISOR AT BEDSIDE.
--- NOTE | 2022-05-23 09:00 | NUR ---
PT TAKEN TO DIALYSIS AT THIS TIME BY CREATIVE PRODUCER VIA BED
--- NOTE | 2022-05-23 11:21 | NUR ---
CALL TO DR LOPEZ REGARDING C/O SORE THROAT. MEDICATION ORDER RECIEVED. ALSO ASKED ABOUT HEPARIN GTT. STATES HE WILL LOOK INTO WHY IT IS ORDERED FOR PT.
--- NOTE | 2022-05-23 18:39 | NUR ---
SHIFT SUMMARY: PT HAS BEEN ON RA ALL SHIFT. HEPARIN ORDERS CHANGED FROM IV TO SC. WENT TO DIALYSIS THIS SHIFT. MEDS ADMINISTERED FOR PAIN PER HOME REGIMEN. NO ACUTE NEEDS OR CONCERNS AT THIS TIME.
[2022-05-24 05:40] LABS: Base Excess Venous 1.2 mmol/L; Bicarbonate Venous 25.3 mmol/L (24.0-30.0); PCO2 Venous 41.3 mmHg (38-42); pH Blood Venous 7.41 (7.34-7.37)
[2022-05-24 05:41] LABS: BASOPHILS ABSOLUTE AUTO 0.02 K/mm3 (0.00-0.23); BASOPHILS PERCENT AUTO 0 % (0-2); EOSINOPHILS ABSOLUTE AUTO 0.01 K/mm3 (0.00-0.68); EOSINOPHILS PERCENT AUTO 0 % (0-6); Hemoglobin 11.2 g/dL (13.5-17.5); IMMATURE GRAN ABSOLUTE AUTO 0.05 K/mm3 (0.00-0.10); IMMATURE GRAN PERCENT AUTO 1 % (0-1); LYMPHOCYTES ABSOLUTE AUTO 0.47 K/mm3 (0.84-5.20); LYMPHOCYTES PERCENT AUTO 6 % (21-46); MONOCYTES ABSOLUTE AUTO 0.63 K/mm3 (0.16-1.47); MONOCYTES PERCENT AUTO 8 % (4-13); Mean Corpuscular HGB 33.9 pg (26.0-34.0); Mean Corpuscular HGB Conc 33.9 g/dL (31.5-36.5); Mean Corpuscular Volume 100 fL (80-100); Mean Platelet Volume 10.9 fL (9.1-12.4); NEUTROPHILS ABSOLUTE AUTO 6.69 K/mm3 (1.96-9.15); NEUTROPHILS PERCENT AUTO 85 % (41-73); Platelet Count 236 K/mm3 (150-400); RDW Coefficient Variation 13.1 % (11.7-14.2); RDW Standard Deviation 48.7 fL (35.1-46.3); White Blood Cell Count 7.87 K/mm3 (4.00-11.30)
[2022-05-24 06:07] LABS: Albumin, Blood 2.5 g/dL (3.4-5.0); Anion Gap 12 mmol/L (6-16); Blood Urea Nitrogen 50 mg/dL (8-24); CO2, Blood 26 mmol/L (21-32); Calcium, Blood 8.9 mg/dL (8.5-10.1); Chloride, Blood 99 mmol/L (98-108); Creatinine, Blood 3.58 mg/dL (0.60-1.20); Glomerular Filtration Rate 16 (60-); Glucose, Blood 157 mg/dL (70-99); Magnesium, Blood 1.6 mg/dL (1.6-2.4); Phosphorus, Blood 3.2 mg/dL (2.5-4.9); Sodium, Blood 137 mmol/L (136-145)
--- NOTE | 2022-05-24 06:19 | NUR ---
SHIFT SUMMARY; PT RECIEVED PAIN MEDS PER EMAR. PT O2 SATS FLUNCTUATED BETWEEN 85-88% ON RA, SO THE PT WAS PLACED ON 3L VIA NC. THE PATIENT HAS SINCE SATED 92% OR GREATER ON 3L VIA NC. PT BECAME FEBRILE THIS AM AT 100.7 DEGREES, TYLENOL ADMINISTERED PER EMAR, NEW TEMP OF 100.1. PT WITH NO OTHER ACUTE MEDICAL CHANGES. PT DID NOT USE CALL LIGHT APPROPRIATELY THROUGHOUT THE NIGHT, GOT UP MULTIPLE TIMES INDEPENDENTLY PT BECAME FRUSTRATED WITH STAFF, ASKING TO BE LEFT ALONE. PT THIS AM IS PLEASANT AND WELCOMING TO STAFF.
[2022-05-24 08:10] LABS: HBSAG SCREEN Negative (Negative)
--- NOTE | 2022-05-24 17:33 | NUR ---
SUMMARY PT HAS SLEPT T/O MOST OF AFTERNOON. SAT UP IN CHAIR OFF AND ON FIRST HALF OF SHIFT. IMPULSIVE, DOES NOT USE CALL LIGHT. BED ALARM AND CHAIR ALARM UTILIZED FOR SAFETY. PT ON 3L NC, SATS IN LOW 90S WHILE SLEEPING. VOIDS SMALL AMOUNTS OF URINE AT A TIME. PLAN FOR DIALYSIS ON THURSDAY. CALL LIGHT IN REACH.
--- NOTE | 2022-05-24 17:59 | NUR ---
REFUSING DINNER CBG CHECKED FOR SAFETY DUE TO PT NOT EATING LUNCH OR DINNER. CBG 219. INCREASED 02 TO 4L DUE TO SATS IN MID 80S WHILE SLEEPING. NOW LOW 90S. BED ALARM ON, CALL LIGHT IN REACH.
--- NOTE | 2022-05-25 04:36 | NUR ---
SHIFT SUMMARY; PT WAS IRRITABLE THROUGHOUT THE NIGHT ABOUT HIS EYE DROPS. STATED THAT PRN MEANS HE SHOULD BE ABLE TO HAVE EYE DROPS WHENEVER HE PLEASES. PT HAD HOME EYE DROPS AT BEDSIDE, ANOTHER RN CONTACTED THE HOPSITALIST TO GET AN ORDER TO ALLOW THE PT TO USE HIS HOME EYE DROPS. AN ORDER WAS ALSO PROVIDED TO ALLOW THE PT TO USE THE ARTIFICIAL EYE DROPS NEEDED PER THE PTS DISCRETION. PT HAD SOME INCONTINECE LAST NIGHT. PT DID NOT GET MUCH REST FOR THE NIGHT. PT'S O2 REMAINED 4-6L O2 VIA NC TO MAINTAIN O2 SATS GREATER THAN 92%. PT TO HAVE DIALYSIS TODAY POSSIBLY. PT WITH NO OTHER ACUTE MEDICAL CHANGES THROUGHOUT THE NIGHT. PT IS CURRENTLY RESTING IN BED WITH THE BED IN THE LOWEST POSITION AND THE CALL LIGHT AT HIS BEDSIDE.
[2022-05-25 05:35] LABS: BASOPHILS ABSOLUTE AUTO 0.01 K/mm3 (0.00-0.23); BASOPHILS PERCENT AUTO 0 % (0-2); EOSINOPHILS PERCENT AUTO 0 % (0-6); Hemoglobin 10.6 g/dL (13.5-17.5); IMMATURE GRAN ABSOLUTE AUTO 0.03 K/mm3 (0.00-0.10); IMMATURE GRAN PERCENT AUTO 1 % (0-1); LYMPHOCYTES ABSOLUTE AUTO 0.45 K/mm3 (0.84-5.20); LYMPHOCYTES PERCENT AUTO 8 % (21-46); MONOCYTES ABSOLUTE AUTO 0.63 K/mm3 (0.16-1.47); MONOCYTES PERCENT AUTO 11 % (4-13); Mean Corpuscular HGB 33.3 pg (26.0-34.0); Mean Corpuscular HGB Conc 33.1 g/dL (31.5-36.5); Mean Corpuscular Volume 101 fL (80-100); NEUTROPHILS PERCENT AUTO 80 % (41-73); Platelet Count 232 K/mm3 (150-400); RDW Coefficient Variation 13.2 % (11.7-14.2); Red Blood Cell Count 3.18 M/mm3 (4.30-5.90); White Blood Cell Count 5.52 K/mm3 (4.00-11.30)
[2022-05-25 06:00] LABS: Albumin, Blood 2.4 g/dL (3.4-5.0); Anion Gap 12 mmol/L (6-16); Blood Urea Nitrogen 69 mg/dL (8-24); Bun/Creatinine Ratio 14.6 (12.0-20.0); CO2, Blood 26 mmol/L (21-32); Calcium, Blood 8.9 mg/dL (8.5-10.1); Chloride, Blood 97 mmol/L (98-108); Creatinine, Blood 4.71 mg/dL (0.60-1.20); Glomerular Filtration Rate 11 (60-); Glucose, Blood 137 mg/dL (70-99); Magnesium, Blood 2.1 mg/dL (1.6-2.4); Phosphorus, Blood 5.3 mg/dL (2.5-4.9); Sodium, Blood 135 mmol/L (136-145)
--- NOTE | 2022-05-25 19:28 | NUR ---
SHIFT SUMMARY PATIENT ALERT AND ORIENTED WHEN AWAKE. O2 AT 4L HUMID MAINTAINS SATS AT 90% AND ABOVE. GENERALLY WEAK. SBA WITH FWW UP TO CHAIR. DIALYSIS COMPLETED THIS AM. ISO FOR ACTIVE COVID INFECTION. TOLERATING SMALL AMOUNTS OF ADA DIET AND LIQUIDS. MEDICATED FOR CHRONIC BACK PAIN PRN. SPOUSE ATTENTIVE IN ROOM DURING AFTERNOON. REPORT GIVEN TO WEATHERIZATION OPERATIONS MANAGER RN.
--- NOTE | 2022-05-26 19:32 | NUR ---
PT IS A/OX3. COOPERATIVE. PT IS UP WITH 1 PERSON ASSIST TO THE CHAIR AND TO THE BATHROOM. THE PT IS MAINTAING O2 SAT'S 87-93% ON 5L/MIN AT REST. THE PTS O2 SAT'S DROP WITH ACTIVITY AND PT REQUIRS MORE OXYGEN. THE PT CAN BE DEMANDING AND RUDE AT TIMES. BUT OTHERWISE IS COOPERATIVE. PT WAS MEDICATED FOR PAIN X1 TODAY. CALL LIGHT IN REACH, WILL CONTINUE TO MONITOR AND ASSESS FOR CHANGES
[2022-05-27 05:50] LABS: Hematocrit 32.5 % (37.0-53.0); Hemoglobin 10.9 g/dL (13.5-17.5)
--- NOTE | 2022-05-27 05:59 | NUR ---
SHIFT MOSTLY UNREMARKABLE. PATIENT HAD VISIT FROM RT IN NIGHT TO IMPLEMENT HIGH FLOW OXYGEN TUBING WITH HUMIDIFICATION. SEE RT NOTE FOR DETAILS. PAIN WELL MANAGED ON CURRENT REGIMEN. PATIENT IS FREQUENTLY/EASILY AGITATED AND FREQUENTLY REQUESTS HELP TRANSFERRING WITHIN ROOM DESPITE OBVIOUS LABORED BREATHING ASSOCIATED WITH AMBULATION. CALL LIGHT LEFT WITHIN REACH.
[2022-05-27 06:08] LABS: Albumin, Blood 2.3 g/dL (3.4-5.0); Anion Gap 15 mmol/L (6-16); Blood Urea Nitrogen 82 mg/dL (8-24); Bun/Creatinine Ratio 13.7 (12.0-20.0); CO2, Blood 25 mmol/L (21-32); Calcium, Blood 8.1 mg/dL (8.5-10.1); Chloride, Blood 93 mmol/L (98-108); Creatinine, Blood 5.98 mg/dL (0.60-1.20); Glomerular Filtration Rate 9 (60-); Glucose, Blood 62 mg/dL (70-99); Magnesium, Blood 2.3 mg/dL (1.6-2.4); Phosphorus, Blood 4.7 mg/dL (2.5-4.9); Potassium, Blood 4.2 mmol/L (3.5-5.5); Sodium, Blood 133 mmol/L (136-145)
--- NOTE | 2022-05-27 08:38 | NUR ---
Received MAD Consult this morning. Reviewed chart and spoke with Anderson Salmeron, his RN. Anderson said that he didn't think a MAD Consult conversation would be particularly helpful due to the dementia, and he had no issues with the patient so far. He said he cared for him yesterday, and the patient could be rude, but he was cooperative and he wouldn't consider it abusive. He had not heard if something happened on shift production supervisor. There is no note about any behavior issues last night on the chart. Anderson will call me back if there are issues later with the patient. [phone].
[2022-05-27 14:46] LABS: Base Excess Venous 6.5 mmol/L; Bicarbonate Venous 30.1 mmol/L (24.0-30.0); PCO2 Venous 36.9 mmHg (38-42); pH Blood Venous 7.51 (7.34-7.37)
[2022-05-27 14:47] LABS: Hematocrit 31.4 % (37.0-53.0); Hemoglobin 10.8 g/dL (13.5-17.5); Mean Corpuscular HGB 33.2 pg (26.0-34.0); Mean Corpuscular HGB Conc 34.4 g/dL (31.5-36.5); Mean Corpuscular Volume 97 fL (80-100); Mean Platelet Volume 10.6 fL (9.1-12.4); Platelet Count 275 K/mm3 (150-400); RDW Coefficient Variation 13.2 % (11.7-14.2); Red Blood Cell Count 3.25 M/mm3 (4.30-5.90); White Blood Cell Count 11.07 K/mm3 (4.00-11.30)
--- NOTE | 2022-05-27 15:20 | NUR ---
PT TAKEN TO THE ICU THIS AFTERNOON AFTER DIALYSIS THE PT WAS LETHARGIC, ONLY ANSWERED QUESTIONS WITH SHORT RESPONCES, DID NOT ENGAGE IN CONVERSATION. THE PT REQUIRED ICREASE IN O2 TO 7L/MIN TOWARD THE END OF DIALYSIS AND HIS HR RATE WAS ELEVATED. METOPROLOL WAS HELD REQUESTED FOR DIALYSIS AND WAS GIVIMMEDIATLY AFTER. PT HR CONTINUED TO BE ELEVATED AND SUSTAINED INTO THE 120'S TO 130'S. A CALL WAS MADE TO DR. MALCOLM ORDERS WERE GIVEN INCLUDING AN EKG WICH SHOWED A-FIB WITH RVR. PT BP WAS TAKEN ON THE LEFT IT WAS 65/39 TAKEN AGAIN ON THE RIGHT ARM IT WAS 89/60. ORDERED A 550CC BOLUS AND TRANSFER ORDERS TO ICU WAS GIVEN. THE STEEL TESTER CALLED A HOUSE NURSE. THE PT WAS TRANSFERED TO ICU REPORT WAS CALLED AND GIVEN TO SHARMILA KOENIG
--- NOTE | 2022-05-27 15:45 | NUR ---
ASSUMED CARE PT WAS LETHARGIC AND DID NOT RESPOND VERY WELL TO QUESTIONS, INITIALLY; AFTER GIVING 0.4MG OF NARCAN, PT BECAME ALERT AND ORIENTED AND WAS MAKING REQUESTS, STILL SOMNULENT. SBP IN THE 90-100'S, HR IN THE 140'S; 5MG OF MIDODRINE GIVEN AND AMIODARONE BOLUS+DRIP STARTED. BLOOD SUGARS WERE 60S~ THIS MORNING PER [facility] FLOOR RN; 86 WHEN FIRST RECIEVED PT AND 103 W/ LAST TAKEN.
[2022-05-27 17:18] LABS: Anti-Xa UFH, PHA Monitoring 0.19 IU/mL; International Normalized Ratio 1.26
[2022-05-27 17:30] LABS: Magnesium, Blood 2.2 mg/dL (1.6-2.4)
[2022-05-27 17:35] LABS: Anion Gap 9 mmol/L (6-16); Blood Urea Nitrogen 41 mg/dL (8-24); Bun/Creatinine Ratio 10.2 (12.0-20.0); CO2, Blood 27 mmol/L (21-32); Chloride, Blood 99 mmol/L (98-108); Creatinine, Blood 4.03 mg/dL (0.60-1.20); Glomerular Filtration Rate 14 (60-); Glucose, Blood 90 mg/dL (70-99); Phosphorus, Blood 3.8 mg/dL (2.5-4.9); Potassium, Blood 4.2 mmol/L (3.5-5.5); Sodium, Blood 135 mmol/L (136-145); Thyroid Stimulating Hormone 0.364 uIU/mL (0.360-4.800)
--- NOTE | 2022-05-27 18:51 | NUR ---
PT BEHAVIOR.... THE PT HAS BEEN AGRESSIVELY DEMANDING TOWARDS STAFF SINCE ARRIVAL TO THIS UNIT. THIS RN WAS ATTEMPTING TO PLACE A POWERGLIDE AND DURING SETUP THE PT OPENED HIS EYES AND DEMANDED AGRESSIVELY "EYE DROPS NOW!" THIS RN ATTEMPTED TO EXPLAIN TO THE PT THAT I WAS IN THE MIDDLE OF SETTING UP A STERILE PROCEDURE AND THAT I WOULD GET HIS EYE DROPS SOON THE PROCEDURE WAS DONE HE STATED "UH NO HOW ABOUT YOU GET THOSE DROPS NOW!" THIS RN ATTEMPTED TO EXPLAIN TO THE PT AGAIN ABOUT BEING IN THE PROCESS OF A STERILE PROCEDURE THE PT RAISED HIS VOICE AND AGAIN AGRESSIVELY SAID "I SAID EYE DROPS NOW!!" THE PT'S JUMPED OUT OF HER CHAIR AT THIS POINT AND SAID "I'LL GET HIS EYE DROPS FOR HIM IT'S JUST EASIER IF YOU GO ALONG WITH WHAT HE WANTS WHEN HE WANTS IT." THE PT WAS GIVEN HIS EYE DROPS AND THIS RN ATTEMPTED TO RESTART THE STERILE PROCEDURE. DURING THE PROCEDURE AGAIN THE PT OPENED HIS EYES AND SAID "WATER GET ME WATER NOW!" THIS RN TOLD THE PT THAT HE WOULD HAVE TO WAIT UNTIL THE PROCEDURE WAS DONE THE PT THEN SAID "I SAID I WANT WATER NOW!" THIS RN TOLD THE PT HE WOULD HAVE TO WAIT UNTIL THIS RN WAS DONE. THE PT THEN SAID "WELL HURRY UP THEN I'M TIRE OF WAITING ON YOU!" AFTER THE POWERGLIDE WAS IN THE PT STARTED TO C/O OF HIP PAIN, THIS RN ENTERED THE ROOM IN AN ATTEMPT TO PROVIDE COMFORT FOR THE PT. THE PT WAS YELLING AT THIS RN "HURRY UP I TOLD YOU I'M HURTING AND YOU AREN'T DOING ANYTING ABOUT IT! I WANT TO GET UP NOW!" THIS RN ATTEMPTED TO EXPLAIN TO THE PT THAT D/T HIS CONDITION AT THIS TIME IT WAS NOT SAFE TO GET THE PT UP OUT OF BED THE PT SAID "BULL SHIT I KNOW MY BODY AND I'M FINE TO GET UP YOU JUST DON'T WANT TO HELP ME!" THIS RN TRIED TO REPOSITION THE PT REQUESTED THAT HIS HEAD OF THE BED BE UP, WHILE THIS RN WAS PUSHING THE BUTTON FOR THE HEAD OF THE BED TO GO UP THE PT RAISED HIS VOICE AGRESSIVELY AND SAID "I SAID I WANT MY HEAD UP!" THIS RN ATTEMPTED TO EXPLAIN TO THE PT THAT THIS WAS FAST THE BED WOULD GO AND THE PT SAID "I DON'T CARE I SAID I WANT MY HEAD UP NOW!" AFTER THIS THE PT AGAIN SAID HE WANTED TO SIT ON THE SIDE OF THE BED OR STAND AT THE SIDE OF THE BED. THIS RN AGAIN TOLD THE PT THAT HE WAS NOT STABLE ENOUGH TO GET OUT OF BED, THE PT THEN TOLD THIS RN "YOU DON'T KNOW WHAT YOU ARE DOING! I WANT TO SPEAK TO YOUR DOG SITTER!" THIS RN THEN LEFT THE ROOM AND GOT THE PAYROLL ANALYST ROBY.
[2022-05-28 05:33] LABS: Hematocrit 29.9 % (37.0-53.0); Mean Corpuscular HGB 33.6 pg (26.0-34.0); Mean Corpuscular HGB Conc 33.4 g/dL (31.5-36.5); Mean Corpuscular Volume 100 fL (80-100); Mean Platelet Volume 11.1 fL (9.1-12.4); Platelet Count 283 K/mm3 (150-400); RDW Coefficient Variation 13.4 % (11.7-14.2); RDW Standard Deviation 49.9 fL (35.1-46.3); Red Blood Cell Count 2.98 M/mm3 (4.30-5.90); White Blood Cell Count 9.75 K/mm3 (4.00-11.30)
[2022-05-28 05:58] LABS: Anion Gap 12 mmol/L (6-16); Blood Urea Nitrogen 58 mg/dL (8-24); Bun/Creatinine Ratio 12.3 (12.0-20.0); CO2, Blood 24 mmol/L (21-32); Calcium, Blood 8.5 mg/dL (8.5-10.1); Chloride, Blood 96 mmol/L (98-108); Glomerular Filtration Rate 11 (60-); Glucose, Blood 187 mg/dL (70-99); Magnesium, Blood 2.2 mg/dL (1.6-2.4); Phosphorus, Blood 6.1 mg/dL (2.5-4.9); Potassium, Blood 5.3 mmol/L (3.5-5.5); Sodium, Blood 132 mmol/L (136-145)
--- NOTE | 2022-05-28 07:24 | NUR ---
ASSUME CARE: I have assumed care of this patient.
[2022-05-28 10:54] LABS: Thyroid Stimulating Hormone 0.379 uIU/mL (0.360-4.800)
--- NOTE | 2022-05-28 11:27 | NUR ---
Pt. is resting in bed, but reponds when I enter the room and welcomes my visit and quickly requests for prayer. Establish rapport and praed with the Pt. The Pt. displays evidence of somnolence, but verbalized gratitude for the spiritual care visit and requested this product handler to return.
--- NOTE | 2022-05-28 15:12 | NUR ---
Echocardiogram completed.
--- NOTE | 2022-05-28 18:03 | NUR ---
late entry pt seen 05/27 during rapid response. pt minimlaly responstive assit with care. and notified . pt reponded to hydration and narcan. He was given jusice when able to swallow with good response. spoke with about his car and condition and his advance directive. will discuss with family.
--- NOTE | 2022-05-28 19:17 | NUR ---
SHIFT SUMMARY: NEURO: pt oriented to self and location. He was able to transfer from bed to chair several times today with walker. CARDIAC: afib converted into sinus rhythm this afternoon. Amio stopped. RESPIRATORY: coarse lung sounds on 7L NC GI/: anuric today. Pt up to commode twice but no BM SKIN: fragile and ecchymotic
[2022-05-29 04:58] LABS: Hematocrit 28.3 % (37.0-53.0); Hemoglobin 9.5 g/dL (13.5-17.5)
[2022-05-29 05:22] LABS: Alanine Aminotransfer (ALT/SGP 40 U/L (12-78); Albumin, Blood 2.1 g/dL (3.4-5.0); Anion Gap 14 mmol/L (6-16); Aspartate Aminotrans (AST/SGOT 175 U/L (12-37); Blood Urea Nitrogen 87 mg/dL (8-24); Bun/Creatinine Ratio 13.7 (12.0-20.0); CO2, Blood 25 mmol/L (21-32); Calcium, Blood 8.3 mg/dL (8.5-10.1); Chloride, Blood 90 mmol/L (98-108); Creatinine, Blood 6.35 mg/dL (0.60-1.20); Glomerular Filtration Rate 8 (60-); Glucose, Blood 193 mg/dL (70-99); Magnesium, Blood 2.4 mg/dL (1.6-2.4); Phosphorus, Blood 6.8 mg/dL (2.5-4.9); Potassium, Blood 5.6 mmol/L (3.5-5.5); Sodium, Blood 129 mmol/L (136-145)
--- NOTE | 2022-05-29 06:03 | NUR ---
SHIFT SUMMARY: PT UP IN CHAIR MOST OF NIGHT. HAD ONE BM. MULTIPLES PERIODS OF STANDING WITH WALKER AND RN ASSISTANCE. HEPARIN DRIP INFUSING AT 10UNITS/KG @ 14.6ML/HR. PT REMAINS VERY DEMANDING. AM EKG DONE AND IN PT CHART. PLANS FOR HD TODAY. HELD MIDNIGHT MIDODRINE DOSE DUE TO HTN. PT ON 7L HFNC SATTING IN UPPER 90s. NEXT XFA DRAW TO BE DONE AT NOON TODAY FOR HEPARIN TITRATION.
--- NOTE | 2022-05-29 07:00 | NUR ---
ASSUME CARE: I have assumed care of this patient.
--- NOTE | 2022-05-29 18:48 | NUR ---
SHIFT SUMMARY: NEURO: unchanged from yesterday. CARDIAC: sinus rhythm throughout the day with stable BPs RESPIRATORY: currently at 6L NC. Pt was titrated down to 4L NC while up in chair and tolerated that well. GI/: anuric. no BM. 1.5L off with dialysis PSYCH/SOCIAL: pt became very anxious during dialysis. 5mg sublinqual zyprexa given with good effect.
--- NOTE | 2022-05-29 19:50 | NUR ---
DIALYSIS PT STARTED ON DIALYSIS AT 1538. AT AROUND 1730 PT BEGAN WANTING TO STAND UP TO URINATE. HIS AND TRIED TO GET HIM TO USE THE URINAL IN BED.HE REFUSED I RETURNED HIS BLOOD WITHOUT DISCONNECTING THE PORTS, THE ER NURSE, HIS AND I STOOD HIM UP AND HE TRIED TO URINATE. HE FINALLY AGREED TO LAY BACK DOWN I RESTARTED THE TX.
--- NOTE | 2022-05-29 23:30 | NUR ---
UPDATE PT BECOMING INCREASINGLY CONFUSED/AGITATED WITH CARE THE SHIFT HAS PROGRESSED. PT HAS REPEATEDLY REMOVED HIS NC CAUSING HIM TO DESAT IN THE LOW 80'S AND SOMETIMES THE HIGH 70'S. PT WAS UNREDIRECTABLE WELL NOT ABLE TO BE REASONED WITH DUE TO HIS SEVERE CONFUSION. MULITPLE ATTEMPTS WERE MADE TO ASSIST THE PT WITH KEEPING HIS O2 ON WITH NO SUCCESS. SOFT BILAT WRIST RESTRAINTS WERE APPLIED. RADIAL PULSES PRESENT ABOVE AND BELOW SITE. WILL CONTINUE TO MONITOR
--- NOTE | 2022-05-30 04:15 | NUR ---
UPDATE PT MANGED TO MOVE HEAD BACK AND FORTH TO CAUSE NC TO FALL OUT OF NOSE AND ONTO THE BED. PT CONTINUES TO BE EXTREMELY CONFUSED AND AGITATED WITH CARE. PT STATES "HELP ME COLLECT THESE PIECES DAMNIT, THEY ARE WORTH 16 MILLION DOLLARS". PT WOULD NOT LET ME OR ABHAY KOENIG, PLACE HIS NC BACK IN HIS NOSE AND HE WOULC YELL OUT. CALLED DR. NHUNG MD ORDERED ATIVAN AND IF ATIVAN DID NOT WORK TO TRY HALDOL. ATIVAN GIVEN PER EMAR. PT SEEMS TO HAVE RESPONDED WELL TO ATIVAN. NC BACK IN PLACE AND PT REPOSITIONED
[2022-05-30 05:13] LABS: Base Excess Venous 3.5 mmol/L; Bicarbonate Venous 26.4 mmol/L (24.0-30.0); PCO2 Venous 48.7 mmHg (38-42); pH Blood Venous 7.38 (7.34-7.37)
[2022-05-30 05:21] LABS: BASOPHILS ABSOLUTE AUTO 0.01 K/mm3 (0.00-0.23); BASOPHILS PERCENT AUTO 0 % (0-2); EOSINOPHILS ABSOLUTE AUTO 0.02 K/mm3 (0.00-0.68); EOSINOPHILS PERCENT AUTO 0 % (0-6); Hematocrit 28.5 % (37.0-53.0); Hemoglobin 9.8 g/dL (13.5-17.5); IMMATURE GRAN ABSOLUTE AUTO 0.11 K/mm3 (0.00-0.10); IMMATURE GRAN PERCENT AUTO 1 % (0-1); LYMPHOCYTES ABSOLUTE AUTO 0.66 K/mm3 (0.84-5.20); LYMPHOCYTES PERCENT AUTO 5 % (21-46); MONOCYTES ABSOLUTE AUTO 0.58 K/mm3 (0.16-1.47); MONOCYTES PERCENT AUTO 5 % (4-13); Mean Corpuscular HGB 33.6 pg (26.0-34.0); Mean Corpuscular HGB Conc 34.4 g/dL (31.5-36.5); Mean Corpuscular Volume 98 fL (80-100); Mean Platelet Volume 10.9 fL (9.1-12.4); NEUTROPHILS PERCENT AUTO 89 % (41-73); NRBC ABSOLUTE 0.02 K/mm3 (0.00-0.02); NRBC Auto 0.2 /100 WBC (0.0-0.2); Platelet Count 295 K/mm3 (150-400); RDW Coefficient Variation 13.1 % (11.7-14.2); RDW Standard Deviation 47.3 fL (35.1-46.3); Red Blood Cell Count 2.92 M/mm3 (4.30-5.90); White Blood Cell Count 12.58 K/mm3 (4.00-11.30)
[2022-05-30 05:40] LABS: Alanine Aminotransfer (ALT/SGP 33 U/L (12-78); Albumin, Blood 2.1 g/dL (3.4-5.0); Anion Gap 14 mmol/L (6-16); Aspartate Aminotrans (AST/SGOT 95 U/L (12-37); Blood Urea Nitrogen 58 mg/dL (8-24); CO2, Blood 27 mmol/L (21-32); Calcium, Blood 8.7 mg/dL (8.5-10.1); Chloride, Blood 92 mmol/L (98-108); Creatinine, Blood 4.84 mg/dL (0.60-1.20); Glomerular Filtration Rate 11 (60-); Glucose, Blood 56 mg/dL (70-99); Magnesium, Blood 2.3 mg/dL (1.6-2.4); Phosphorus, Blood 5.2 mg/dL (2.5-4.9); Potassium, Blood 4.1 mmol/L (3.5-5.5); Sodium, Blood 133 mmol/L (136-145)
--- NOTE | 2022-05-30 06:16 | NUR ---
SHIFT SUMMARY PT IS A/Ox2-3, BUT HAS BECOMING INCREASINGLY CONFUSED/AGITATED T/O THE NIGHT. PT WOULD RIP OFF IS NC WELL PULL AT HIS TELE AND THEN YELL OUT/CURSE AT STAFF WHEN WE ATTEMPTED TO PUT THEM BACK INTO PLACE. CONTACTED MD AND GOT PRN ATIVAN WELL A SOFT WRIST RESTRAINTS. PT RESPONDED WELL TO ATIVAN EVEN AT LOW DOSE. CARDIAC WATERS PT REMAINED IN SR 80-90'S T/O THE NIGHT AFTER RECEIVING PO AMIO. FOLLOW UP EKG DONE THIS AM WITH NO CP OR PRESSURE REPORTED T/O THE SHIFT. RESPIRATORY WATERS WHEN PT KEPT HIS NC ON HE MAINTAINS SPO2 >92% ON 5L WITH SOB NOTED WITH AMBULATION OR POSITION CHANGES. BREATHS ARE SHALLOW WITH AN OCCASIONAL MOIST COUGH NOTED. GI/: DAY SHIFT REPORTED PT HAD BM ON 05/28 . ABD NONTENDER WITH BS IN ALL QUADRANTS. RECEIVED DIALYSIS ON 05/29 AND CONTINUES TO BE ANURIC. VSS T/O THE SHIFT
--- NOTE | 2022-05-30 10:40 | NUR ---
Spoke with RN Clincal Coordinator Floresita, fulling mill operator Hasmukh, and Primary RN James. Pt has been experiencing agitation, refusing care and refusing medications. Family may benefit from goals of care discussion. Called and spoke with Pt's spouse Linda. Provided update and reviewed plan of care. Engaged in therapeutic discussin regarding goals of care including considering comfort care and hospice. Educated on comfort care and hospice philosophy with V/U made by spouse. Spouse Linda reports plan to visit with Pt later this AM and will consider options after assessing Pt when she is visiting. Palliative Care will remain available.
--- NOTE | 2022-05-30 13:16 | NUR ---
Received call Pt's spouse has arrived. Pt resting in bed with his eyes closed. Spouse Linda states she would like Markus (Pt) to be part of conversation. Attempted to educate Linda of Pt's confusion and inability to process information, understand information, make decision in current condition. Linda attempts to wake Pt. Pt remains with his eyes closed speaking 1 or 2 words on occasion. When asked orientation questions Pt states being in the hospital but can not give appropriate reason or current year. Offered therapeutic listening and answered questions for Linda. Linda reports Pt does not have dementia and only intermittent memory issues related to age. She reports Pt still drives himself in his care. Continued supportive visit. Linda reports not being ready to make any decisions regarding comfort care and hospice at this time. She states she would like more time to see if Pt improves. Spoke with car groomer Hasmukh and RN Clinical Coordinator Floresita. Relayed spouses wishes. Palliative Care will remain avilable.
--- NOTE | 2022-05-30 16:12 | NUR ---
CARE ASSUMPTION/TRANSFER TO PCU: PATIENT ARRIVED TO PCU AROUND 1445. ALERT TO SELF, PLACE, AND . TRANSFERRED VIA SLIDE SHEET TO BED. ABLE TO MOVE ALL EXTREMITIES. BILAERAL ELECTRON BEAM OPERATOR STRENGTH. EYES SENSATIVE TO LIGHT. PATIENT REQUESTED EYE MASK AND NOW WEARING AT THIS TIME. EYES CRUSTING, NOT ALLOWING THIS RN TO USE WASHCLOTH TO CLEAN. REQUESTING EYE DROPS, NOT ALLOWING RN TO ASSIST. PATIENT PLACED EYE DROPS IN EYEBROW. TELE SHOWING SINUS RHYTHM WITH HR 80-90'S. DENIES CHEST PAIN/PRESSURE/PALPITATIONS. NO SIGNS OF EDEMA. STRONG PPP. BP SLIGHTLY ELEVATED WITH SBP IN 150'S. ON 4-5L HIGH FLOW NASAL CANNULA SATING LOW-MID 90'S. RR 18-22. LUNGS SOUNDING CLEAR AND DIM/COARSE IN BASES. OCCASIONAL COUGH. DRINKING WATER AND COFFEE AT THIS TIME WITH RN OR ASSISTANCE. Q2 TURNING, RED COCCYX NOTED WITH SMALL AMOUNT OF SKIN BREAKDOWN. MEPILEX APPLIED. PILLOWS FLOATING HIPS. PATIENT STATES HE ONLY ATE TWO BITES OF LUNCH. DENIES ABDOMINAL PAIN/NAUSEA. NO ISSUES NOTED SWALLOWING WATER. ATTENDS IN PLACE. MAKES MINIMAL URINE, DIALYSIS PATIENT. DIALYSIS CATH TO RIGHT UPPER CHEST. RIGHT UPPER ARM POWERGLIDE SALINE LOCKED. DRAWING AND FLUSHING WELL. JILL AT BEDSIDE. ORIENTED TO ROOM/UNIT. ORIENTED TO PCU PROTOCOLS WITH VITALS AND NURSE ROUNDING. BED ALARM ON, BED IN LOW LOCKED POSITION. DENIES NEEDS. WILL CONTINUE TO MONITOR.
--- NOTE | 2022-05-30 17:54 | NUR ---
SHIFT SUMMARY: NO ACUTE CHANGES. REMAINS CONFUSED AND AGGITATED AT TIMES. AT BEDSIDE HELPING WITH CARES AND DINNER AT THIS TIME. SINUS RHYTHM WITH HR 80-90'S. REMAINS ON 4-5L NASAL CANNULA SATING LOW-MID 90'S. COMPLAINS OF PAIN, MEDICATED PER EMAR. SWALLOWING PILLS WNL. UP SITTING AT EDGE OF BED WITH EATING DINNER. BED ALARM REMAINS ON. PATIENT STANDING AT EDGE OF BED WITH 2 STAFF TO USE URINAL. PATIENT DOES WELL WHEN NARRATING CARE. ABLE TO REDIRECT. PRESENCE HELPING PATIENT ORIENTATION. CALL LIGHT IN REACH. DENIES NEEDS AT THIS TIME. WILL CONTINUE TO MONITOR AND REPORT OFF TO ONCOMING RN.
--- NOTE | 2022-05-30 21:48 | NUR ---
OXYGEN FLUCUATION ON THE START OF THE SHIFT PT WAS ON 5L NC. A HUMIDIFIER WAS SET UP DUE TO A BLOODY NOSE. PT BLEW HIS NOSE AND HAD A LARGE CLOT COME OUT. PT WAS FLUCUATING BETWEEN SP02 80-90%. OXYGEN CHANGED TO HELP THE PT RECOVER, AND HE HAS BEEN COACHED FREQUENTLY ABOUT DEEP BREATHING. WHEN THE PT FALLS ASLEEP HE DESATS AND WE HAVE HAD TO TURN HIS OXYGEN BETWEEN 5-12L TO MAINTAIN SP02>90%. SEE NOTES FOR ANY UPDATES.
[2022-05-31 05:07] LABS: Hemoglobin 9.2 g/dL (13.5-17.5)
--- NOTE | 2022-05-31 05:25 | NUR ---
SHIFT SUMMARY PT IS A&O BUT HAS BEEN HAVING ALOT OF ANXIETY TONIGHT. HE WAS STARTING TO CRAWL OUT OF BED, YELL AT STAFF, AND WAS NOT BEING COOPERATIVE W/ CARE. WHEN HE WAS TRYING TO CRAWL OUT OF BED HIS POWERGLIDE GOT PULLED AND WAS BLEEDING FROM THE HUB. CHARGE NURSE, COOPERATIVE MANAGER, AND I CHANGED THE DRESSING AND CONFIRMED IV WAS STILL PATENT. HE WAS GIVEN ATIVAN AND HAS BEEN SLEEPING SINCE. HIS 02 HAS BEEN CHANGED T/O THE NIGHT, SEE PREVIOUS NOTE FOR MORE INFORMATION. HE CURRENTLY IS ON 9L NC AND SPO2 >90%. HIS HR HAS BEEN SR 60-80BPM T/O THE SHIFT AND HE DENIES ANGINA AND SOB. BED IS IN LOW, THREE SIDE RAILS ARE UP, BED ALARM IS ON, CALL LIGHT IS IN REACH. WILL CONTINUE TO MONITOR UNTIL SHIFT REPORT IS GIVEN TO THE ONCOMING SHIFT RN. SEE NOTES FOR ANY UPDATES.
[2022-05-31 05:40] LABS: Albumin, Blood 1.9 g/dL (3.4-5.0); Anion Gap 12 mmol/L (6-16); Blood Urea Nitrogen 73 mg/dL (8-24); CO2, Blood 29 mmol/L (21-32); Calcium, Blood 8.2 mg/dL (8.5-10.1); Chloride, Blood 91 mmol/L (98-108); Creatinine, Blood 6.09 mg/dL (0.60-1.20); Glomerular Filtration Rate 8 (60-); Glucose, Blood 84 mg/dL (70-99); Magnesium, Blood 2.4 mg/dL (1.6-2.4); Phosphorus, Blood 4.6 mg/dL (2.5-4.9); Potassium, Blood 4.6 mmol/L (3.5-5.5); Sodium, Blood 132 mmol/L (136-145)
--- NOTE | 2022-05-31 11:11 | NUR ---
AM NOTE: PATIENT ALERT AND ORIENTED TO SELF, , PLACE. AT TIMES INTERMIT INCREASED CONFUSION AND ANGER. VERY IRRITABLE AND ANGRY WITH CARES. YELLING AT STAFF AND NOT WILLING TO COOPERATE. THIS RN HAVING A HARD TIME THIS AM DOING AM CARES. NOW AT BEDSIDE AND PATIENT SEEMS TO BE MORE COMFORTABLE AND ORIENTED. DENIES NUMBNESS/TINGLING. STATES THE LIGHTS HURTS HIS EYES, WEARING EYE MASK. EYELIDS CRUSTY, NOT ALLOWING RN TO HELP CLEAN. NOT ALLOWING RN TO HELP WITH ORAL CARE, REFUSING. ON 5L HIGH FLOW NASAL CANNULA WITH HUMIDIFICATION SATING LOW-MID 90'S. OCCASIONAL MOIST COUGH. LUNGS SOUNDING COARSE. TELE SHOWING SINUS RHYTHM WITH HR 70-80'S. BP STABLE. NO SIGNS OF EDEMA. PPP. DIALYSIS AT THIS TIME IN ROOM. DENIES ABDOMINAL PAIN/NAUSEA. EATING SMALL AMOUNTS OF FOOD. ATTEMPT FOR BM THIS AM, STOOL SOFTNER GIVEN. UP TO BSC WITH 2 PERSON ASSIST. STANDING TO USE URINAL WITH [address] LOPEZ BY THIS AM. NO NEW ORDERS FOR THIS RN TO PLACE. REMAINS AT BEDSIDE. CALL LIGHT IN REACH. BED IN LOW LOCKED POSITION WITH BED ALARM IN PLACE. WILL CONTINUE TO MONITOR.
--- NOTE | 2022-05-31 17:08 | NUR ---
PATIENT UP TO BSC WITH 2 PERSON ASSIST. VERY SMALL BM. WHEN GETTING PATIENT BACK TO BED, PATIENT FLIPPED INTO AFIB WITH HR 110-120'S. DENIES CHEST PAIN/PRESSURE. CALL PLACED TO DR. LOPEZ, MESSAGE LEFT WITH CALL BACK NUMBER.
--- NOTE | 2022-05-31 18:03 | NUR ---
SHIFT SUMMARY: PATIENT VERY AGGITATED AND ANGRY WITH STAFF THIS EVENING. YELLING AND NOT COOPERATING WITH CARES. THIS RN OFFERING MULTIPLE OPTIONS/SOLUTIONS FOR PATIENT AND NOTHING HELPED. REMAINS ALERT TO SELF, , AND PLACE. AT TIMES INCREASING CONFUSION AND AGGITATION. WORKED WITH PT TODAY. UP WITH 2 PERSON ASSIST AND FWW. UNSTEADY ON FEET AND HARD TO REDIRECT AT TIMES. UP TO BEDSIDE COMMODE MULTIPLE TIMES TODAY TO ATTEMPT BOWEL MOVEMENT. ADDITIONAL STOOL SOFTNER ADDED AND PATIENT ABLE TO HAVE SMALL BOWEL MOVEMENT. UP TO BEDSIDE COMMODE AROUND 1700 AND PATIENT CONVERTED FROM SR-AFIB HR AVERAGING 110'S BUT TOUCHING 130'S AT TIMES. SEE PREVIOUS NOTE ABOUT AFIB. THIS RN JUST NOTIFIED OF PATIENT CONVERTING BACK TO SR. CURRENTLY SR WITH HR 80-90'S. BP REMAINS STABLE, ELEVATED THIS EVENING AND PO MIDODRINE HELD. TAKING MEDS WITH WATER. REFUSING MOST TURNS OR ONCE TURNED AND FLOATING HIPS PATIENT THEN DEMANDS PILLOW OUT FROM UNDER HIPS. MEPILEX IN PLACE ON COCCYX. BRUISING AND SKIN TEARS SCATTERED ON BILATERAL ARMS. REFUSING MOST FOOD TODAY. DRINKING WATER AND COFFEE. ONLY WILLING TO EAT FRUIT CUP FOR DINNER. IN FOR MOST OF DAY, DIALYSIS IN AM. PATIENT USING CALL LIGHT ABOUT EVERY TEN MINTUES THIS EVENING. RN AND FOCUSING MACHINE OPERATOR CONSTANTLY IN ROOM READJUSTING PATIENT. BED ALARM IN PLACE. CALL LIGHT IN REACH. BED IN LOW LOCKED POSITION. WILL CONTINUE TO MONITOR AND REPORT OFF TO ONCOMING RN.
--- NOTE | 2022-05-31 19:27 | NUR ---
CALL TO RESIDENT DR. MENDOSA REGARDING UNCONTROLLED PAIN. PER RN TO RN REPORT, PATIENT'S PAIN HAS NOT BEEN WELL CONTROLLED THROUGHOUT THE DAY WITH 50 MCG OF IV FENTANYL. 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 ORDER RECEIVED FOR PO OXYCODONE.
--- NOTE | 2022-05-31 23:10 | NUR ---
UPDATE ON PATIENT BEHAIOR / INTERACTION WITH STAFF CALLED TO PATIENT'S ROOM BY APPLICATION SECURITY ENGINEER DUE TO PATIENT REMOVING HIS NASAL CANNULA AND INSISTENCE UPON GETTING OUT OF BED. ADVISED PATIENT OF NEED TO SUPPLEMENTAL OXYGEN AND TO KEEP NASAL CANNULA IN PLACE. DISCOURAGED GETTING OUT OF BED AT THIS TIME DUE TO OXYGEN SATURATION LEVEL AND DYSPNEA. PATIENT CONTINUED TO INSIST THAT HE NEEDED TO GET OUT OF BED AND WALK AROUND. COMPROMISED ON SITTING AT THE SIDE OF THE BED. ASSISTED TO THE SIDE OF THE BED. PATIENT SAT THERE FOR APPROXIMATELY 10 MINUTES AND WAS ASSISTED BACK TO BED BY APPLICATION SECURITY ENGINEER AND ME. MR. OCHOA IS INTERMITTENTLY COOPERATIVE WITH CARE, SOMETIMES ACCPETING ASSISTANCE FROM STAFF AND OTHER TIMES INSISTENT UPON DOING THINGS INDEPENDENTLY BEFORE INSISTING THAT A STAFF MEMBER HELP HIM. MR. OCHOA IS DEMANDING IN HIS TONE. IMPATIENT AND QUICK TO RAISE HIS VOICE. HE INSULTS STAFF'S JOB PERFORMANCE, TELLING THEM THAT THEY DON'T KNOW WHAT THEY ARE DOING, IF HIS REQUESTS/DEMANDS ARE NOT GRANTED/MET WITHIN SECONDS OF HIS REQUEST/DEMAND. ATIVAN ADMINISTERED ORDERED.
--- NOTE | 2022-06-01 00:50 | NUR ---
BED ALARM SET OFF BY PATIENT ATTEMPTING TO GET OUT OF BED. CALLED TO PATIENT'S ROOM BY CARLOS ROBERTS WHO RESPONDED TO THE BED ALARM. PATIENT WAS SITTING ON THE EDGE OF THE BED. PATIENT STATED, "I NEED TO GO PEE AND GET OUT OF HERE." PATIENT STOOD UP AT SIDE OF BED AND TOOK A COUPLE OF STEPS. HIS GAIT WAS UNSTEADY AND HE STUMBLED I ASSISTED HIM BACK TO THE BED - HIS UPPER BODY WAS IN THE BED AND HIS LEGS OUT OF THE BED. PATIENT BEGAN PUSHING AGAINST ME, REPEATEDLY SWATTED AT ANOTHER STAFF MEMBER WHO WAS ATTEMPTING TO REPLACE HIS NASAL CANNULA. GETTING HIM BACK INTO BED REQUIRED 3 STAFF MEMBERS. PATIENT CONTINUED TO BE COMBATIVE. I HAD PLACED MY RIGHT ARM UNDER HIS RIGHT ARM AND SHOULDER WHEN GETTING HIM BACK INTO BED AND THE PATIENT STIFFENED UP HIS ARM, PINNING MY ARM AND HAND AGAINST HIS BODY. I HAD TO USE SOME RESISTANCE AGAINST HIS RIGHT ARM IN ORDER TO FREE MY ARM. PATIENT HAS MULTIPLE SKIN TEARS IN VARIOUS STAGES OF HEALING TO HIS BILATERAL UPPER EXTREMITIES. DURING THIS EPISODE, 2 SCABBED TEARS ON HIS LEFT RING FINGER AND ELBOW AREA OPEND UP AND 1 SKIN TEAR ON THE RIGHT FOREARM STARTED TO BLEED. BLEEDING STOPPED WITH APPLICATION OF GAUZE. NON ADHERENT PAD SECURED WITH COBAN APPLIED TO RIGHT FOREARM AND LEFT ELBOW. PATIENT HAD FALLEN BACK TO SLEEP BY THE TIME I LEFT THE ROOM AT APPROXIMATELY 01:10. NASAL CANNULA IN PLACE. BED ALARM ACTIVATED ON MOST SENSITIVE SETTING. WILL CONTINUE TO MONITOR.
[2022-06-01 05:58] LABS: Hematocrit 25.4 % (37.0-53.0); Hemoglobin 8.4 g/dL (13.5-17.5)
[2022-06-01 07:20] LABS: Albumin, Blood 2.1 g/dL (3.4-5.0); Anion Gap 11 mmol/L (6-16); Blood Urea Nitrogen 54 mg/dL (8-24); Bun/Creatinine Ratio 10.9 (12.0-20.0); CO2, Blood 28 mmol/L (21-32); Calcium, Blood 8.2 mg/dL (8.5-10.1); Chloride, Blood 94 mmol/L (98-108); Creatinine, Blood 4.94 mg/dL (0.60-1.20); Glomerular Filtration Rate 11 (60-); Glucose, Blood 207 mg/dL (70-99); Magnesium, Blood 2.2 mg/dL (1.6-2.4); Phosphorus, Blood 4.6 mg/dL (2.5-4.9); Potassium, Blood 4.6 mmol/L (3.5-5.5); Sodium, Blood 133 mmol/L (136-145)
--- NOTE | 2022-06-01 18:38 | NUR ---
SHIFT SUMMARY: NO ACUTE CHANGES THIS SHIFT. PT ALERT, SLEEPS OFTEN, AGITATED AT TIMES R/TO CARE PROVIDED AND THE WAY IT IS PROVIDED BY STAFF/FAMILY, OVERALL COOPERATIVE W/CARE TODAY. DISCHARGE F/EYES CONTINUE, PT USING WASHCLOTH AND HOME EYE DROPS TREATMENT, PT'S INFORMED ABOUT NEED FOR MORE EYE DROPS FROM HOME. O2 SATS MAINTAINED >92%, CURRENTLY RECEIVING O2 AT 1 L/MIN VIA NC, OCCASIONAL WEAK CONGESTED COUGH. SR ON MONITOR, RATE 60s-70s. PT UP TO BSC OFTEN, 1-2 PERSON ASSIST W/FWW, MULTIPLE BMs T/OUT THE DAY. FRAGILE SKIN W/SCATTERED BRUISES AND SKIN TEARS. MEPILEX TO COCCYX FOR REDNESS. PT EATS PART OF EACH OF HIS MEALS TODAY. NO DIALYSIS TODAY, PLAN IS FOR TOMORROW. AT THIS TIME, PT RESTING IN BED WITH TV ON AND CALL LIGHT WITHIN REACH. WILL CONTINUE TO MONITOR AND TREAT ACCORDINGLY UNTIL CHANGE OF SHIFT.
--- NOTE | 2022-06-01 19:17 | NUR ---
TOOK OVER CARE OF PT AT 1900, PT RESTING ON 1L NC.
[2022-06-02 04:31] LABS: Hematocrit 27.2 % (37.0-53.0); Hemoglobin 9.1 g/dL (13.5-17.5)
[2022-06-02 04:54] LABS: Albumin, Blood 2.3 g/dL (3.4-5.0); Anion Gap 12 mmol/L (6-16); Blood Urea Nitrogen 77 mg/dL (8-24); Bun/Creatinine Ratio 12.6 (12.0-20.0); CO2, Blood 28 mmol/L (21-32); Calcium, Blood 8.5 mg/dL (8.5-10.1); Chloride, Blood 89 mmol/L (98-108); Creatinine, Blood 6.11 mg/dL (0.60-1.20); Glomerular Filtration Rate 8 (60-); Glucose, Blood 196 mg/dL (70-99); Magnesium, Blood 2.7 mg/dL (1.6-2.4); Potassium, Blood 5.2 mmol/L (3.5-5.5); Sodium, Blood 129 mmol/L (136-145)
--- NOTE | 2022-06-02 10:12 | NUR ---
AMINAH IS CURRENTLY UNDERGOING DIALYSIS WITH [facility]. HE HAS BEEN ABLE TO TAKE HIS MEDS AND FLUIDS WITHOUT DIFFICULTY. HE WAS ABLE TO EXPRESS THAT HE WANTED TO CHOOSE HIS MEALS AND THAT HE WANTED HIS TO BRING HIM IN A BREAKFAST SAND- WICH. HE IS UP WITH ASSISTANCE AND WHEELED WALKER. HE IS ABLE TO MAKE HIS NEEDS KNOWN. IS DOWNGRADING HIS STATUS TO MEDICAL AND SAID HE WILL WORK ON HIS DISCHARGE PLAN FOR POSSIBLY TOMORROW.
--- NOTE | 2022-06-02 18:14 | NUR ---
"AMINAH" WAS BUSY TODAY, WITH GETTING UP AND USING THE BSC, TO DIALYSIS WITH [facility] TO WORKING WITH PHYS.THER. AND WALKING ABOUT THE ROOM. HE WAS UP TO BSC SEVERAL TIMES TODAY AND HE WAS ABLE TO VOID AND HAVE A BM. HIS SKIN IS FRAGILE AND SEVERELY BLACK AND FRAGILE. HIS OXYGEN IS VIA NC @ 1L NOW, WAS UP TO 2L DURING SOME THERAPY TIMES TODAY. HE CONTINUES WITH BLOODY NOSE ON OCC, SKIN TEARS AND EYE DRAINAGE. HE HAS EATEN A LITTLE BIT MORE TODAY, HE IS ABLE TO FEED HIMSELF AND IS BEGINNING TO WASH HIS OWN FACE AND PARTICIPATE IN HIS CARE. HIS WAS HERE FOR A COUPLE OF HOURS THIS AFTERNOON, BRINGING HIM IN A BURGER FROM [employer]. HE WAS JOKING WITH THIS NURSE AND TEASING WELL. SAYS IT IS NICE TO HAVE "HIM BACK". WILL CONTINUE TO MONITOR AND TREAT NEEDED AND REPORT OFF TO ONCOMING NURSE.
--- NOTE | 2022-06-02 20:00 | NUR ---
ASSUMED CARE OF PT AT 1915. REPORT RECEIVED. PT PRESENTS IN BED. WAS SLEEPING UPON GREETING. IS ABLE TO SIT UP AT SIDE OF BED WITH ASSIST. REQUESTS HIS HS MEDS EARLY SO HE CAN SLEEP. REQUESTS "PAIN PILL" FOR HIP PAIN. MEDICATED PT WITH 1 NORCO. PT HAS BEEN UP PREVIOUS TO BATHROOM AND BACK TO BED WITH 1 PERSON ASSIST. PT ALERT AND ORIENTED. PLEASANT AND COOPERATIVE WITH CARE AND ASSESSMENT. WILL REVIEW CHART AND PLAN OF CARE FOR THIS PT.
--- NOTE | 2022-06-02 21:29 | NUR ---
REPORT GIVEN TO ARYA DE PAZ.
--- NOTE | 2022-06-03 05:52 | NUR ---
SHIFT SUMMARY ASSUMED CARE OF PT AT 2100 AFTER GETTING REPORT FROM [employer]. PT IS A/OX3-4. PT IS IMPULSIVE AT TIMES AND FORGETFUL. NO ACUTE EVENTS. PT SLEPT MOST OF THE NIGHT. PT SKIN IS VERY FRAGILE AND BRUIEDS T/O. POWERGLIDE ALIX THIS AM. DIALYSIS SITE C/D/I. PT IS A 1P ASSIST WITH WLAKER TO STAND FOR URINAL.
[2022-06-03 05:56] LABS: Hematocrit 27.4 % (37.0-53.0)
[2022-06-03 06:18] LABS: Albumin, Blood 2.5 g/dL (3.4-5.0); Anion Gap 9 mmol/L (6-16); Blood Urea Nitrogen 58 mg/dL (8-24); Bun/Creatinine Ratio 11.5 (12.0-20.0); CO2, Blood 30 mmol/L (21-32); Calcium, Blood 9.2 mg/dL (8.5-10.1); Chloride, Blood 94 mmol/L (98-108); Creatinine, Blood 5.03 mg/dL (0.60-1.20); Glomerular Filtration Rate 11 (60-); Glucose, Blood 83 mg/dL (70-99); Magnesium, Blood 2.4 mg/dL (1.6-2.4); Phosphorus, Blood 3.6 mg/dL (2.5-4.9); Sodium, Blood 133 mmol/L (136-145)
--- NOTE | 2022-06-03 17:15 | NUR ---
SHIFT SUMMARY PT ALERT, ORIENTED TO PERSON, PLACE, FAMILY, FORGETFUL AT TIMES. PT UP WITH 2 PERSON ASSIST TO BSC. PT REPORTING BACK PAIN, MEDICATED PER EMAR. PT DENIES CHEST PAIN/PRESSURE, SOB, NAUSEA, NUMB/TINGLING AND DIZZINESS. BP CONTINUES TO BE ELEVATED THIS EVENING, NOTIFIED DR MALCOLM, NEW ORDERS TO GIVE 2100 DOSE OF LOPRESSOR EARLY. SPO2 >90% ON 1L O2 VIA NC, ATTEMPTED TO TITRATE TO RA PT SPO2 86-88%, BREATHING EVEN AND UNLABORED. PT HAD BLOODY NOTED THIS AM, SKIN TEARS BLEEDING, MD AWARE, HELD HEPARIN. OTHER VSS. NO OTHER ACUTE CHANGES NOTED. WILL CONTINUE TO MONITOR.
--- NOTE | 2022-06-03 18:27 | NUR ---
PT ARRIVED TO UNIT FROM PCU. SKIN TEARS T/O PLAN TO CHANGE DRESSING AND ASSESS WOUNDS. PT REQUESTS COFFEE. 1L LATIA.
--- NOTE | 2022-06-04 04:41 | NUR ---
CALL TO HOSPITIALIST RE: PT HAVING A NOSE BLEED PER PT LASTING LONGER THEN 20 MINUTES- AND HYPERTENSION- MODERATE AMOUNT OF BLOOD - NEW ORDERS FOR BOTH
--- NOTE | 2022-06-04 06:31 | NUR ---
PT ON PRECAUTIONS FOR COVID- PT HAD MULTIPLE NOSE BLEEDS - PT REFUSES TO FOLLOW DIRECTIONS- PT CONTINUES TO BLOW NOSE- REFUSES TO HOLD BRIDGE OF NOSE- GAVE NOSE SPRAY X1 - ATTEMPTED TO CALL HOSPITALIST X2 REQUESTING ADDITIONAL TX- NO ANSWER OF 0630 AM- GAVE HYDRALAZINE FOR HYPTERTENSION- BLOOD PRESSURE DECREASED- CHANGED SKIN TEAR BANDAGES - 2 TO RIGHT ARM AND 1 ON DAMIR- HELD HEPARIN D/T BLEEDING- WILL CONTINUE TO TRY TO GET AHELAN OF DR MORGAN TO REQUEST HE ASSESS THE PT
--- NOTE | 2022-06-04 06:41 | NUR ---
DR. MORGAN CALLED BACK AND ORDERED TO STOP SCHEDULED HEPARIN - LET HIM KNOW THAT PT IS REQUESTING FOR HIM TO COME IN - DR. MORGAN UNABLE TO COME UP -I LET HIM KNOW THAT PT WAS NON COMPLIANT WITH PINCHING NOSE AND CONTINUES TO BLOW HIS NOSE- AND THAT PT IS BLEEDING A MODERATE AMOUNT
--- NOTE | 2022-06-04 10:27 | NUR ---
DR MALCOLM NOTIFIED OF HTN BY THIS RN- 204/114 MEDICATED W/ ORDERED 10MG HYDRALAZINE IV.
--- NOTE | 2022-06-04 18:22 | NUR ---
SHIFT SUMMARY PT A&OX4 AND IN PLEASENT MOOD T/O SHIFT, IN TO SEE PT THIS SHIFT. HD THIS SHIFT-HYPOTENSION NOTED AFTER HYDRALAZINE ADMINISTRATION, 1.5L OFF. PAIN MEDICATED PER EMAR. TOLERATING PO INTAKE. POWERGLIDE DRESSING CHANGED THIS SHIFT. CALL LIGHT W/IN REACH. NOSE BLEEDS IN EARLY AM REPORTED TO - LAST KNOWN NOSE BLEED AT APPROX. [id number].
[2022-06-05 05:44] LABS: Hematocrit 26.3 % (37.0-53.0); Hemoglobin 9.1 g/dL (13.5-17.5)
--- NOTE | 2022-06-05 05:44 | NUR ---
SHIFT SUMMARY PT A&O X [id number] PRECAUTIONS IN PLACE D/T COVID- UNKNOWN WHEN OFF PRECAUTIONS- PT TAKES NORCO FOR BACK HIP PAIN- MEDICATED PT X 2 T/O NIGHT- PT CALLS APPROPRIATE- PT HAS TO BE REMINDED TO GROUP NEEDS AND TO BE APPROPRIATE WITH STAFF- PT HAD SIGNIFICANT NOSE BLEED NIGHT OF 06/03-HEPARIN ORDERS WERE D/C- PT NOSE BLEEDING SMALL AMT AT BEGIN SHIFT-REMINDED PT TO NOT PICK OR BLOW NOSE- APPLIED MULTIPLE BANDAIDS TO SCABS ON BILAT ARMS/HANDS -PLAN IS FOR SNF PLACEMENT
[2022-06-05 06:13] LABS: Albumin, Blood 2.2 g/dL (3.4-5.0); Anion Gap 10 mmol/L (6-16); Blood Urea Nitrogen 52 mg/dL (8-24); Bun/Creatinine Ratio 10.2 (12.0-20.0); CO2, Blood 31 mmol/L (21-32); Calcium, Blood 8.9 mg/dL (8.5-10.1); Chloride, Blood 91 mmol/L (98-108); Creatinine, Blood 5.09 mg/dL (0.60-1.20); Glomerular Filtration Rate 10 (60-); Glucose, Blood 96 mg/dL (70-99); Phosphorus, Blood 3.4 mg/dL (2.5-4.9); Potassium, Blood 4.2 mmol/L (3.5-5.5); Sodium, Blood 132 mmol/L (136-145)
--- NOTE | 2022-06-05 18:19 | NUR ---
SHIFT SUMMARY PT A&O X 3. VSS. PT IN COVID ISO. HAS BEEN PLEASANT & COOPERATIVE WITH ALL CARE. WORKED WITH PHYS THERAPY TWICE TODAY. SAT UP IN CHAIR FOR LUNCH. IS ABLE TO GET UP WITH A WALKER TO AMBULATE TO BATHROOM WITH STDBY ASSIST. APPETITE IS GOOD. MEDICATED FOR PAIN ONCE TODAY. WAS AT BEDSIDE MAJORITY OF THE AFTERNOON. UPON DC PT WILL LIKELY GO TO REHAB/SNF.
--- NOTE | 2022-06-06 04:37 | NUR ---
SHIFT SUMMARY; NO ACUTE MEDICAL CHANGES OVERNIGHT. PT REMAINS ON 1L NC TO MAINTAIN SATS GREATER THAN 92%. PT REMAINS IN ISO FOR COVID. I DID DRESSING CHANGES ON THE BACK OF BOTH ARMS, BOTH DRESSINGS WERE SATURATED THROUGH. PT WAS KIND AND COOPERATIVE WITH CARE THIS PM. PT USED CALL LIGHT APPOPRIATELY THROUGHOUT THE SHIFT. PT WAS ABLE TO AMBULATE TO THE BATHROOM WITH A STANBY ASSIT AND THE USE OF A FWW. PT REQUESTED PAIN MEDICATION THIS AM FOR CHRONIC BACK PAIN BUT OTHERWISE DENIES ANY ACUTE PAIN OR SOB. PT CURRENTLY RESTING IN BED WITH THE BED IN THE LOWEST POSITION AND THE CALL LIGHT AT BEDSIDE.
[2022-06-06 06:45] LABS: Albumin, Blood 2.3 g/dL (3.4-5.0); Anion Gap 12 mmol/L (6-16); Blood Urea Nitrogen 61 mg/dL (8-24); CO2, Blood 28 mmol/L (21-32); Calcium, Blood 8.8 mg/dL (8.5-10.1); Chloride, Blood 91 mmol/L (98-108); Creatinine, Blood 6.12 mg/dL (0.60-1.20); Glomerular Filtration Rate 8 (60-); Glucose, Blood 85 mg/dL (70-99); Magnesium, Blood 2.1 mg/dL (1.6-2.4); Phosphorus, Blood 4.3 mg/dL (2.5-4.9); Potassium, Blood 4.3 mmol/L (3.5-5.5); Sodium, Blood 131 mmol/L (136-145)
[2022-06-06 06:55] LABS: Hematocrit 27.7 % (37.0-53.0); Hemoglobin 9.5 g/dL (13.5-17.5)
--- NOTE | 2022-06-06 16:37 | NUR ---
DAYSHIFT SUMMARY This morning patient called, and began yelling Hey! RN donning PPE, patient continued yelling out. Patient got OOB and started to walk to BR. Gait steady, uses FWW. Took all medications this morning. Patients at bedside most of the day, once his left, patient started called for staff. No changes to patient status this shift, VSS, awaiting placement.
--- NOTE | 2022-06-07 04:47 | NUR ---
SHIFT SUMMARY; NO ACUTE CHANGES OVERNIGHT. THE PT USED THE CALL LIGHT APPROPRIATLEY THROUGHOUT THE NIGHT. THE PT WAS KIND AND PLEASANT WITH STAFF. THE PT REMAINS ON 1L NC. THE PT DENIES ANY PAIN OR SOB AT THIS TIME. CURRENTLY THE PT IS RESTING IN BED WITH THE BED IN THE LOWEST POSITION AND THE CALL LIGHT IN HIS LAP.
[2022-06-07 05:59] LABS: Hematocrit 27.2 % (37.0-53.0); Hemoglobin 9.3 g/dL (13.5-17.5)
[2022-06-07 06:17] LABS: Albumin, Blood 2.4 g/dL (3.4-5.0); Anion Gap 13 mmol/L (6-16); Blood Urea Nitrogen 66 mg/dL (8-24); Bun/Creatinine Ratio 9.7 (12.0-20.0); CO2, Blood 26 mmol/L (21-32); Calcium, Blood 9.2 mg/dL (8.5-10.1); Chloride, Blood 92 mmol/L (98-108); Creatinine, Blood 6.83 mg/dL (0.60-1.20); Glomerular Filtration Rate 7 (60-); Glucose, Blood 84 mg/dL (70-99); Phosphorus, Blood 4.6 mg/dL (2.5-4.9); Potassium, Blood 4.4 mmol/L (3.5-5.5); Sodium, Blood 131 mmol/L (136-145)
--- NOTE | 2022-06-07 16:43 | NUR ---
NO ACUTE CHANGES AT THIS TIME. PT AOX3 WITH MILD CONFUSION. PT HAS BEEN COOPERATIVE OF CARE. PT IS A ONE PERSON TO CHAIR. CALL LIGHT IS WITHIN REACH. PT TREATED FOR BACK PAIN PER EMAR. NO DISTRESS NOTED AT THIS TIME.
--- NOTE | 2022-06-08 04:20 | NUR ---
SHIFT SUMMARY; NO ACUTE MEDICAL CHANGES OVERNIGHT. PT WAS KIND AND PLEASANT WITH STAFF LAST NIGHT. PT USED THE CALL LIGHT APPROPRIATLEY. PT REQUESTED PAIN MEDICATION LAST NIGHT FOR AN ACHEY BACK, FOR WHICH HE WAS MEDICATED FOR PER THE EMAR. PT DENIES ANY SOB AT THIS TIME. PTS O2 SATS REMAIN STABLE ON RA. CURRENTLY THE PT IS RESTING IN THE BED WITH THE BED IN THE LOWEST POSITION AND THE CALL LIGHT AT BEDSIDE. PT AXO X4, NO CONFUSION THIS SHIFT.
[2022-06-08 06:06] LABS: Hematocrit 25.9 % (37.0-53.0); Hemoglobin 8.7 g/dL (13.5-17.5)
[2022-06-08 06:28] LABS: Albumin, Blood 2.3 g/dL (3.4-5.0); Anion Gap 8 mmol/L (6-16); Blood Urea Nitrogen 38 mg/dL (8-24); Bun/Creatinine Ratio 7.8 (12.0-20.0); CO2, Blood 31 mmol/L (21-32); Chloride, Blood 94 mmol/L (98-108); Creatinine, Blood 4.89 mg/dL (0.60-1.20); Glomerular Filtration Rate 11 (60-); Glucose, Blood 97 mg/dL (70-99); Magnesium, Blood 1.9 mg/dL (1.6-2.4); Phosphorus, Blood 3.5 mg/dL (2.5-4.9); Potassium, Blood 4.3 mmol/L (3.5-5.5); Sodium, Blood 133 mmol/L (136-145)
--- NOTE | 2022-06-08 16:56 | NUR ---
NO ACUTE CHANGES. AOX3 AND COOPERATIVE OF CARE. PT IS A STANDBY WITH WALKER TO RESTROOM OR UP TO CHAIR. PT USES CALL LIGHT APPROPRIATELY. SKIN TEAR BANDAGE WAS CHANGED ON R ARM. NO DISTRESS NOTED CALL LIGHT WITHIN REACH.
--- NOTE | 2022-06-08 19:33 | NUR ---
RECEIVED REPORT FROM VIOLET RN. PT IN BED. ON RA. CALL LT IN REACH.
--- NOTE | 2022-06-08 22:00 | NUR ---
PT COOPERATIVE WITH CARE. USES CALL LT FREQUENTLY FOR NEEDS. ABLE TO STATE NEEDS. MEDICATED WITH NORCO FOR CHRONIC BACK PAIN. RESP EVEN ON RA. STATES HE WILL PROBABLY HAVE DIALYSIS IN THE MORNING SINCE HE DIDN'T HAVE IT TODAY. LIKES TO VISIT WITH STAFF. WILL CONTINUE TO PROVIDE CARE T/O SHIFT. CALL LT IN REACH.
--- NOTE | 2022-06-09 | NUR ---
PT RESTING IN BED. USES CALL LT OFTEN. NO ACUTE CHANGES. CALL LT IN REACH.
--- NOTE | 2022-06-09 02:00 | NUR ---
PT RESTING QUIETLY AT THIS TIME. CALL LT IN REACH.
--- NOTE | 2022-06-09 04:11 | NUR ---
PT IN BED RESTING QUIETLY AT THIS TIME. CALL LT WITHIN REACH.
--- NOTE | 2022-06-09 04:50 | NUR ---
SHIFT SUMMARY: ALERT AND ORIENTED. ABLE TO STATE NEEDS. USED CALL LT OFTEN. ON RA. MEDICATED X 2 FOR CHRONIC LOW BACK PAIN. PT REPORTED AN IMPROVEMENT IN PAIN LEVEL. USED THE FWW WITH SBA TO THE BR. LIKES TO TAKE HIS MEDS THREE AT A TIME WITH WATER. NO ACUTE CHANGES. WILL CONTINUE TO PROVIDE CARE UNTIL SHIFT REPORT TO ONCOMING NURSE.
[2022-06-09 06:19] LABS: Hematocrit 36.9 % (37.0-53.0); Hemoglobin 12.2 g/dL (13.5-17.5)
[2022-06-09 06:31] LABS: Albumin, Blood 2.4 g/dL (3.4-5.0); Anion Gap 8 mmol/L (6-16); Blood Urea Nitrogen 53 mg/dL (8-24); Bun/Creatinine Ratio 9.1 (12.0-20.0); CO2, Blood 29 mmol/L (21-32); Calcium, Blood 9.4 mg/dL (8.5-10.1); Chloride, Blood 96 mmol/L (98-108); Creatinine, Blood 5.85 mg/dL (0.60-1.20); Glomerular Filtration Rate 9 (60-); Glucose, Blood 124 mg/dL (70-99); Magnesium, Blood 1.9 mg/dL (1.6-2.4); Phosphorus, Blood 4.3 mg/dL (2.5-4.9); Potassium, Blood 4.4 mmol/L (3.5-5.5); Sodium, Blood 133 mmol/L (136-145)
--- NOTE | 2022-06-09 16:41 | NUR ---
NO ACUTE CHANGES. PT AOX3 HAS BEEN COOPERATIVE OF CARE. PT HAD DIALYSIS TODAY AND TOLERATED WELL. HAS BEEN AT BEDSIDE WITH PT. PT HAS BEEN A ONE PERSON UP TO RESTROOM. NO DISTRESS NOTED CALL LIGHT WITHIN REACH. WILL CONTINUE TO MONITOR.
--- NOTE | 2022-06-10 04:06 | NUR ---
SHIFT SUMMARY ADMITTED FOR COVID+ PNEUMONIA. DNR CODE. ENHANCED PRECAUTIONS FOR COVID+. PLAN IS FOR DC TO SNF/REHAB. DIALYSIS SCHEDULED 3 DAYS PER WEEK. RENAL DIET. PT REMOVED POWERGLIDE THIS SHIFT. ORDER FOR NO IV ACCESS RECEIVED. ALL MEDS ARE PO. HE IS CONFUSED, BUT CALLS FOR HELP. DIARRHEA REPORTED ON PREVIOUS SHIFT. INDEPENDENT TO BSC. HE USES A CANE AT HOME. DR. MCCLELLAN IS RENAL CONSULT.
--- NOTE | 2022-06-10 05:43 | NUR ---
PT REFUSING PT HAS REFUSED LAB DRAWS TWICE THIS MORNING. LAB PERSONEL WILL REATTEMPT
[2022-06-10 06:06] LABS: Hematocrit 24.1 % (37.0-53.0); Hemoglobin 7.9 g/dL (13.5-17.5)
[2022-06-10 06:16] LABS: Albumin, Blood 2.5 g/dL (3.4-5.0); Anion Gap 9 mmol/L (6-16); Blood Urea Nitrogen 27 mg/dL (8-24); Bun/Creatinine Ratio 6.8 (12.0-20.0); CO2, Blood 31 mmol/L (21-32); Calcium, Blood 8.8 mg/dL (8.5-10.1); Chloride, Blood 91 mmol/L (98-108); Creatinine, Blood 3.97 mg/dL (0.60-1.20); Glomerular Filtration Rate 14 (60-); Glucose, Blood 135 mg/dL (70-99); Magnesium, Blood 1.7 mg/dL (1.6-2.4); Phosphorus, Blood 3.3 mg/dL (2.5-4.9); Potassium, Blood 3.9 mmol/L (3.5-5.5); Sodium, Blood 131 mmol/L (136-145)
--- NOTE | 2022-06-10 11:42 | NUR ---
Spiritual Care Visit. Pt. is resting, but displays evidence of listening. Spouse is present and welcomes my visit. Spouse is unsettled about delays to get into rehab facility. Pt. is in isolation, so normalizing the Pt. experience is attempted. Spouse displays evidence of understanding. Pt. moves from bed to chair with 's assistance. Prayed with Pt. and spouse. Spouse verbalized gratitude for the spiritual care visit.
--- NOTE | 2022-06-10 18:14 | NUR ---
NOTE PT CALLS FREQUENTLY. WAS AT BEDSIDE MOST OF THE DAY. HE DOESN'T CALL WHEN SHE'S THERE. SHE ENCOURAGES HIM, STRONGLY, TO DO FOR HIMSELF. PT ABLE TO WALK TO BR WITH FWW. GAIT STEADY. HE HAS BEEN COMPLIANT WITH USING THE CALL LIGHT TO USE THE BR. EATING WELL. CURRENTLY SITTING UP AT BEDSIDE. CONTINUE POC.
--- NOTE | 2022-06-11 04:02 | NUR ---
SHIFT SUMMARY ADMITTED FOR COVID+/PNEUMONIA. DNR CODE. PLAN IS DC HOME VS. PLACEMENT. 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 DIALYSIS PT: JEANNIE, CHELA, AND MATTHEW. 1 ASSIST TO BSC. RENAL DIET. HS CBG'S FOR LONG ACTING INSULIN. HX OF DEMENTIA. LABILE MOODS. CONFUSED.
[2022-06-11 05:57] LABS: Hematocrit 25.1 % (37.0-53.0); Hemoglobin 8.3 g/dL (13.5-17.5)
[2022-06-11 06:23] LABS: Albumin, Blood 2.6 g/dL (3.4-5.0); Anion Gap 9 mmol/L (6-16); Blood Urea Nitrogen 38 mg/dL (8-24); Bun/Creatinine Ratio 7.9 (12.0-20.0); CO2, Blood 30 mmol/L (21-32); Calcium, Blood 9.2 mg/dL (8.5-10.1); Chloride, Blood 92 mmol/L (98-108); Creatinine, Blood 4.83 mg/dL (0.60-1.20); Glomerular Filtration Rate 11 (60-); Glucose, Blood 137 mg/dL (70-99); Magnesium, Blood 1.8 mg/dL (1.6-2.4); Phosphorus, Blood 4.1 mg/dL (2.5-4.9); Potassium, Blood 4.2 mmol/L (3.5-5.5); Sodium, Blood 131 mmol/L (136-145)
[2022-06-11] MEDS ORDERED: ALBU90OI INH (11:53)
[2022-06-11] MEDS ORDERED: GUAI600T33 PO (11:54)
[2022-06-11] MEDS ORDERED: PACERONE100 M1 PO (11:54)
[2022-06-11] MEDS ORDERED: CYCL0.05OP BOTHEYES (11:55)
[2022-06-11] MEDS ORDERED: MIRALAX17 GM PO (11:55)
[2022-06-11] MEDS ORDERED: TRAVOPROST2.5 ML BOTHEYES (11:56)
--- NOTE | 2022-06-11 11:58 | NUR ---
POST DIALYSIS RETURNED FROM DIALYSIS DEPARTMENT. PT ALERT AND ANXIOUS. DEMANDED TO WALK TO BATHROOM. HE STARTED CLIMBING OOB. PROVIDED FWW AND PLACED A GAIT BELT. RECOMMENEDED HE [place] [facility] [place]. HE STATED, "FUCK THAT." SBA BEHIND HIM. MADE IT TO THE DOORWAY HE STOPPED WALKING AND STARTED TO BUCKLE. EASED HIM DOWN TO THE FLOOR. STAFF THEN ASSISTED HIM UP INTO THE WC. HE WAS AWAKE AND ALERT THE ENTIRE TIME. USING THE W/C TOOK HIM TO THE TOILET. ASSISTED TO TRANSFER TO THE TOILET. HE HAD A BM. HELPED HIM BACK INTO THE W/C AND RETURNED TO BED. NOTIFED CHARGE AND PT . CONTINUE POC.
--- NOTE | 2022-06-11 13:03 | NUR ---
REUBEN BURGOS REPORT CALLED TO [facility] BURG[facility]. AT BEDSIDE AND AWARE OF TRANSFER. CONTINUE POC.
--- NOTE | 2022-06-11 13:54 | NUR ---
discharge to [facility] via w/c. following with belongings. Pt tolerated sitting up in w/c well. right fa iv removed with cannula intact. pressure dressing applied. Continue poc.
== END 2022-06-11 13:50 | DRG 177 ==
LOC: ER 16:01 → MEDS 16:02 → ICUW 05-23 15:50 → MEDS 05-23 15:50 → ICUW 05-27 15:22 → PCU 05-30 14:42 → MEDS 06-03 18:16
PROVIDERS: Emergency Medicine; Internal Medicine; Internal Medicine Cardiovascular Disease; Internal Medicine Nephrology; Student in an Organized Health Care Education/Training Program; ADMIT Student in an Organized Health Care Education/Training Program
PROC: 3E0DX3Z Introduction of Anti-inflammatory into Mouth and Pharynx, External Approach (ICD-10-PCS; 2022-05-22)
PROC: 8E0ZXY6 Isolation (ICD-10-PCS; 2022-05-23)
PROC: 5A1D70Z Performance of Urinary Filtration, Intermittent, Less than 6 Hours Per Day (ICD-10-PCS; principal; 2022-05-26)
PROC: 5A0935A Assistance with Respiratory Ventilation, Less than 24 Consecutive Hours, High Flow/Velocity Cannula (ICD-10-PCS; 2022-05-26)
DX: U07.1 COVID-19 (principal); G92.8 Other toxic encephalopathy; I21.4 Non-ST elevation (NSTEMI) myocardial infarction; J12.82 Pneumonia due to coronavirus disease 2019; J96.01 Acute respiratory failure with hypoxia; N18.6 End stage renal disease; I50.23 Acute on chronic systolic (congestive) heart failure; I13.2 Hypertensive heart and chronic kidney disease with heart failure and with stage 5 chronic kidney disease, or end stage renal disease; N25.81 Secondary hyperparathyroidism of renal origin; E87.1 Hypo-osmolality and hyponatremia; F11.20 Opioid dependence, uncomplicated; F03.918 Unspecified dementia, unspecified severity, with other behavioral disturbance; I48.0 Paroxysmal atrial fibrillation; I35.0 Nonrheumatic aortic (valve) stenosis; Z66 Do not resuscitate; I25.5 Ischemic cardiomyopathy; E11.22 Type 2 diabetes mellitus with diabetic chronic kidney disease; E03.9 Hypothyroidism, unspecified; M10.9 Gout, unspecified; E87.5 Hyperkalemia; E11.51 Type 2 diabetes mellitus with diabetic peripheral angiopathy without gangrene; E78.00 Pure hypercholesterolemia, unspecified; R04.0 Epistaxis; I25.10 Atherosclerotic heart disease of native coronary artery without angina pectoris; J98.01 Acute bronchospasm; M54.50 Low back pain, unspecified; G89.29 Other chronic pain; H18.519 Endothelial corneal dystrophy, unspecified eye; D63.1 Anemia in chronic kidney disease; I95.9 Hypotension, unspecified; E88.09 Other disorders of plasma-protein metabolism, not elsewhere classified; N40.0 Benign prostatic hyperplasia without lower urinary tract symptoms; C44.90 Unspecified malignant neoplasm of skin, unspecified; M79.81 Nontraumatic hematoma of soft tissue; S60.521A Blister (nonthermal) of right hand, initial encounter; Z90.49 Acquired absence of other specified parts of digestive tract; Z96.651 Presence of right artificial knee joint; Z96.611 Presence of right artificial shoulder joint; Z79.01 Long term (current) use of anticoagulants; Z99.2 Dependence on renal dialysis; Z95.5 Presence of coronary angioplasty implant and graft; Z88.7 Allergy status to serum and vaccine; Z88.8 Allergy status to other drugs, medicaments and biological substances; Z79.899 Other long term (current) drug therapy; Z79.811 Long term (current) use of aromatase inhibitors; Z79.4 Long term (current) use of insulin; Z79.02 Long term (current) use of antithrombotics/antiplatelets; Z79.82 Long term (current) use of aspirin; Z91.15 Patient's noncompliance with renal dialysis; Z98.890 Other specified postprocedural states; Z94.7 Corneal transplant status; Z87.891 Personal history of nicotine dependence; Z95.828 Presence of other vascular implants and grafts
CPT/HCPCS: 0241U; 36415; 71045; 71046; 80048; 80053; 80069; 80400; 81001; 82533; 82803; 82947; 83605; 83735; 84100; 84132; 84443; 84450; 84460; 84484; 85014; 85018; 85025; 85027; 85520; 85610; 85730; 87040; 87340; 93005; 93010; 93306; 94760; 94762; 96365; 96366; 96372; 96375; 97110; 97116; 97161; 97530; 99285-25; A9270; C1751; C9113; G0378; J0282; J0360; J0834; J0881; J1644; J1815; J2060; J2310; J2405; J2930; J7030; J7040; J7060; J7120; P9047

== ENCOUNTER 2022-10-10 08:28 | Emergency (ER) | payer MEDICARE, OTHER ==
[~2022-10-10] VITALS: Ht 167.6 cm; Wt 83.5 kg
[~2022-10-10 08:28] MED LIST changes: +ALBU90OI INH; +ALLO100 PO; +CARV6.25 PO; +CLOP75 PO; +GUAI600T33 PO; +LOKELMA10 GM; +MIRALAX17 GM PO; +NITROFURANTOIN25 MG; +PACERONE100 M1 PO; +Robaxin750 MG; +Robaxin750 MG PO; +SERT100; +SEVEC800; +SEVEC800 PO; +TRAVOPROST2.5 ML BOTHEYES
[2022-10-10 09:09] LABS: BASOPHILS ABSOLUTE AUTO 0.04 K/mm3 (0.00-0.23); BASOPHILS PERCENT AUTO 0 % (0-2); EOSINOPHILS PERCENT AUTO 0 % (0-6); Hematocrit 35.4 % (37.0-53.0); Hemoglobin 11.7 g/dL (13.5-17.5); IMMATURE GRAN ABSOLUTE AUTO 0.05 K/mm3 (0.00-0.10); IMMATURE GRAN PERCENT AUTO 0 % (0-1); LYMPHOCYTES ABSOLUTE AUTO 0.12 K/mm3 (0.84-5.20); LYMPHOCYTES PERCENT AUTO 1 % (21-46); MONOCYTES ABSOLUTE AUTO 0.32 K/mm3 (0.16-1.47); MONOCYTES PERCENT AUTO 2 % (4-13); Mean Corpuscular HGB 32.2 pg (26.0-34.0); Mean Corpuscular HGB Conc 33.1 g/dL (31.5-36.5); Mean Corpuscular Volume 98 fL (80-100); Mean Platelet Volume 10.8 fL (9.1-12.4); NEUTROPHILS ABSOLUTE AUTO 13.12 K/mm3 (1.96-9.15); NEUTROPHILS PERCENT AUTO 96 % (41-73); Platelet Count 164 K/mm3 (150-400); RDW Coefficient Variation 13.9 % (11.7-14.2); RDW Standard Deviation 49.8 fL (35.1-46.3); Red Blood Cell Count 3.63 M/mm3 (4.30-5.90); White Blood Cell Count 13.65 K/mm3 (4.00-11.30)
[2022-10-10 09:24] LABS: International Normalized Ratio 1.09; Prothrombin Time Results 11.4 Sec (9.7-11.5)
[2022-10-10] MEDS ORDERED: Norco 10-325 T1 EACH PO (09:24)
[2022-10-10] MEDS ORDERED: TRAVOPROST2.5 ML BOTHEYES (09:27)
[2022-10-10] MEDS ORDERED: ALPR.5 PO (09:27)
[2022-10-10] MEDS ORDERED: BISA10S PR (09:29)
[2022-10-10] MEDS ORDERED: NITR.4SL SL (09:29)
[2022-10-10 09:33] LABS: Albumin, Blood 3.1 g/dL (3.4-5.0); Albumin/Globulin Ratio 0.8 (0.8-1.8); Bilirubin, Total 0.7 mg/dL (0.1-1.0); Bun/Creatinine Ratio 11.9 (12.0-20.0); Calcium, Blood 8.2 mg/dL (8.5-10.1); Creatinine, Blood 4.03 mg/dL (0.60-1.20); Total Protein, Blood 7.1 g/dL (6.4-8.2)
== END 2022-10-10 11:59 | disposition home or self-care (01) ==
LOC: ER 08:28
PROVIDERS: Student in an Organized Health Care Education/Training Program
DX: K92.2 Gastrointestinal hemorrhage, unspecified (principal); R57.8 Other shock; I12.0 Hypertensive chronic kidney disease with stage 5 chronic kidney disease or end stage renal disease; E11.22 Type 2 diabetes mellitus with diabetic chronic kidney disease; N18.6 End stage renal disease; E78.00 Pure hypercholesterolemia, unspecified; J44.9 Chronic obstructive pulmonary disease, unspecified; Z88.6 Allergy status to analgesic agent; Z88.7 Allergy status to serum and vaccine; Z88.8 Allergy status to other drugs, medicaments and biological substances; Z79.899 Other long term (current) drug therapy; Z79.82 Long term (current) use of aspirin; Z79.4 Long term (current) use of insulin
CPT/HCPCS: 36430; 74177; 80053; 82272; 83735; 85025; 85610; 85730; 86850; 86900; 86901; 86923; 93005; 93010; 96361; 96365-59; 96375; 96376; 99285-25; C9113; J2405; J7030; P9016; Q9967

== ENCOUNTER 2022-10-27 08:43 | Observation (INO) | payer MEDICARE, OTHER ==
[~2022-10-27] VITALS: Ht 172.7 cm; Wt 82.0 kg
[2022-10-27] VITALS (11 sets, daily range): BP systolic 105–179; BP diastolic 63–81
[~2022-10-27 08:43] MED LIST changes: +ALPR.5 PO; +BISA10S PR; +NITR.4SL SL; +Norco 10-325 T1 EACH PO; -SERT100; +SERT100 PO
[2022-10-27 09:38] LABS: BASOPHILS ABSOLUTE AUTO 0.05 K/mm3 (0.00-0.23); BASOPHILS PERCENT AUTO 1 % (0-2); EOSINOPHILS ABSOLUTE AUTO 0.11 K/mm3 (0.00-0.68); EOSINOPHILS PERCENT AUTO 2 % (0-6); Hematocrit 28.2 % (37.0-53.0); IMMATURE GRAN ABSOLUTE AUTO 0.02 K/mm3 (0.00-0.10); IMMATURE GRAN PERCENT AUTO 0 % (0-1); LYMPHOCYTES ABSOLUTE AUTO 0.51 K/mm3 (0.84-5.20); LYMPHOCYTES PERCENT AUTO 7 % (21-46); MONOCYTES PERCENT AUTO 7 % (4-13); Mean Corpuscular HGB 32.1 pg (26.0-34.0); Mean Corpuscular HGB Conc 31.9 g/dL (31.5-36.5); Mean Corpuscular Volume 101 fL (80-100); Mean Platelet Volume 10.2 fL (9.1-12.4); NEUTROPHILS ABSOLUTE AUTO 6.33 K/mm3 (1.96-9.15); NEUTROPHILS PERCENT AUTO 84 % (41-73); Platelet Count 201 K/mm3 (150-400); RDW Coefficient Variation 15.7 % (11.7-14.2); White Blood Cell Count 7.52 K/mm3 (4.00-11.30)
[2022-10-27 10:02] LABS: Albumin, Blood 2.9 g/dL (3.4-5.0); Albumin/Globulin Ratio 0.7 (0.8-1.8); Bilirubin, Total 0.5 mg/dL (0.1-1.0); Bun/Creatinine Ratio 8.9 (12.0-20.0); Calcium, Blood 7.9 mg/dL (8.5-10.1); Creatinine, Blood 4.71 mg/dL (0.60-1.20); Globulin, Blood 4.1 g/dL (2.2-4.0); Potassium, Blood 4.6 mmol/L (3.5-5.5)
[2022-10-27 10:06] LABS: International Normalized Ratio 1.25
[2022-10-27 12:56] LABS: Hematocrit 27.3 % (37.0-53.0); Hemoglobin 8.7 g/dL (13.5-17.5)
[2022-10-27] MEDS ORDERED: OMEP20ER PO (13:26)
--- NOTE | 2022-10-27 15:35 | NUR ---
PT OFF UNIT VIA GURNEY TO SURGERY. PT'S WATCH PLACED IN LOCKED DRAWER OUTSIDE ROOM.
--- NOTE | 2022-10-27 18:09 | NUR ---
PT RETURNED FROM SURGERY AT 1750, TRANSFERRED FROM [facility] TO BED WITH MAX ASSISTANCE. A&O X 3, APPROPRIATE. C/O PAIN IN NECK AND BACK. RU CHEST PREVIOUS PERMACATH SITE COVERED BY ADHESIVE GAUZE DRESSING WITH DRIED BLOOD MARKED. L NECK BAND AID OOZING MODERATED AMT OF BLOOD; BAND AID REMOVED AND GAUZE PRESSURE DRESSING APPLIED ALONG WITH DIRECT PRESSURE FOR > 5 MINUTES. L CHEST PERMACATH SITE ALSO OOZING BLOOD UNDER CHG DRESSING; SANDBAG APPLIED. WILL CALL PLANT CLERK PROVIDER FOR PAIN MEDICATIONS AND CONTINUE TO MONITOR ALL SITES FOR FURTHER BLEEDING.
--- NOTE | 2022-10-27 19:22 | NUR ---
SHIFT SUMMARY: RECEIVED TELEPHONE ORDER FROM DR. HENLEY FOR PAIN MEDICATION, ALSO NOTIFIED HER OF BLEEDING FROM NEW OP SITES. CALLED DR. ALSTON TO NOTIFY ABOUT HEMATOMA AND TRICKLING BLOOD; HE RECOMMENDED REMOVING THE SANDBAG AND APPLYING DIRECT PRESSURE CONTINUOUSLY TO NECK SITE FOR 10 MINUTES (MORTGAGE LOAN UNDERWRITER S. LEE DOING THIS, AND SANDBAG REMOVED). C/O PAIN IN NECK AND BACK; MEDICATED PER EMAR. USING URINAL WITH ASSISTANCE. ON ROOM AIR. LIKELY D/C HOME AFTER DIALYSIS TOMORROW.
[2022-10-28] VITALS (20 sets, daily range): BP systolic 132–173; BP diastolic 64–109
[2022-10-28 05:31] LABS: BASOPHILS ABSOLUTE AUTO 0.04 K/mm3 (0.00-0.23); BASOPHILS PERCENT AUTO 0 % (0-2); EOSINOPHILS ABSOLUTE AUTO 0.02 K/mm3 (0.00-0.68); EOSINOPHILS PERCENT AUTO 0 % (0-6); Hematocrit 27.2 % (37.0-53.0); Hemoglobin 8.9 g/dL (13.5-17.5); IMMATURE GRAN ABSOLUTE AUTO 0.04 K/mm3 (0.00-0.10); IMMATURE GRAN PERCENT AUTO 0 % (0-1); LYMPHOCYTES ABSOLUTE AUTO 0.52 K/mm3 (0.84-5.20); LYMPHOCYTES PERCENT AUTO 6 % (21-46); MONOCYTES ABSOLUTE AUTO 0.45 K/mm3 (0.16-1.47); MONOCYTES PERCENT AUTO 5 % (4-13); Mean Corpuscular HGB 32.6 pg (26.0-34.0); Mean Corpuscular HGB Conc 32.7 g/dL (31.5-36.5); Mean Corpuscular Volume 100 fL (80-100); Mean Platelet Volume 10.4 fL (9.1-12.4); NEUTROPHILS ABSOLUTE AUTO 8.25 K/mm3 (1.96-9.15); NEUTROPHILS PERCENT AUTO 89 % (41-73); Platelet Count 193 K/mm3 (150-400); RDW Standard Deviation 56.4 fL (35.1-46.3); Red Blood Cell Count 2.73 M/mm3 (4.30-5.90); White Blood Cell Count 9.32 K/mm3 (4.00-11.30)
[2022-10-28 06:01] LABS: Albumin, Blood 2.8 g/dL (3.4-5.0); Anion Gap 3 mmol/L (6-16); Blood Urea Nitrogen 52 mg/dL (8-24); CO2, Blood 28 mmol/L (21-32); Chloride, Blood 103 mmol/L (98-108); Glomerular Filtration Rate 10 (60-); Glucose, Blood 161 mg/dL (70-99); Magnesium, Blood 1.9 mg/dL (1.6-2.4); Phosphorus, Blood 4.1 mg/dL (2.5-4.9); Potassium, Blood 5.1 mmol/L (3.5-5.5); Sodium, Blood 134 mmol/L (136-145)
--- NOTE | 2022-10-28 06:05 | NUR ---
HELD PRESSURE ON NEW DIALYSIS PORT FOR APPROXIMATELY 15 MINUTES AT START OF SHIFT. BLEEDING SLOWED WITH TIME. CHANGED DRESSING AND IT HAS NOT SATURATED. PENDING DIALYSIS TODAY. PT AO, VSS, CALLS APPROPRIATELY.
--- NOTE | 2022-10-28 12:30 | NUR ---
CALLED TO ROOM 328 BY HD RN AT ~1110, ASKED ME TO BRING NC. UPON ARRIVAL, HD RN STATED THAT PT WAS NOT FEELING RIGHT AND SHE STOPPED HD A LITTLE EARLY. PT WAS LYING FLAT IN BED, STATED THAT "EVERYTHING THAT WAS UP THERE IS DOWN HERE, AND EVERYTHING DOWN THERE IS UP HERE." VS: 173/86, HR 79, PLACED O2 @ 2 L/MIN NC WITH SAT AT 100%. STATED O2 WAS NOT HELPING, WANTED IT INCREASED TO 4 L/MIN NC. PLACED PT IN REVERSE TRENDELENBERG, WHICH ALSO DID NOT HELP, STATED HE FELT LIKE HE WAS FALLING FORWARD. NEURO: PUPILS NEAR PINPOINT, EQUAL. NO FACIAL DROOP, TONGUE MIDLINE, ORIENTED TO SELF AND PLACE. HAND STRENGTH AND PRODUCTION CONTROL SPECIALIST EQUAL BILATERALLY, ABLE TO FOLLOW COMMANDS. CALL PLACED TO DR. HENLEY, WHO CAME TO EVALUATE PT. CBG 125. PT STATED THAT HE NORMALLY HAS O2 ON WHILE BEING DIALYZED, WHICH WAS UNKNOWN TO THIS AUTHOR AND HD RN'S. DR. HENLEY ORDER TO HOLD D/C FOR ONE HOUR AND KEEP CHECKING NEURO STATUS. 1220: NO NEURO CHANGES. PT IS SITTING ON EDGE OF BED, DRESSED AND READY TO GO HOME, AT BEDSIDE. MENTATION APPEARS TO BE CLEARING.
--- NOTE | 2022-10-28 14:00 | NUR ---
CALL PLACED TO DR. HENLEY: PT EAGER TO GO HOME. PT'S STATED THAT SHE FEELS THAT HE IS BACK TO NORMAL. HE REMOVED HIS OWN IV. DR. HENLEY WILL PLACE NEW D/C ORDERS.
--- NOTE | 2022-10-28 17:55 | NUR ---
PATIENT DISCHARGED TO HOME, ACCOMPANIED BY HIS . PT AND VERBALIZED UNDERSTANDING OF D/C INSTRUCTIONS. OFF UNIT VIA W/C AT 1428. NO BELONGINGS LEFT BEHIND IN ROOM. PT'S WATCH RETURNED TO PATIENT.
== END 2022-10-28 14:28 | disposition home or self-care (01) ==
LOC: ER 08:43 → SURS 08:44 → MEDS 08:44 → EDBEDREQSVC 11:59 → EDBEDREQ 11:59 → MEDS 12:52 → ENPENDDIS 10-28 10:48 → MEDS 10-28 14:28
PROVIDERS: Physician Assistant; ADMIT Internal Medicine
DX: T82.838A Hemorrhage due to vascular prosthetic devices, implants and grafts, initial encounter (principal); Y71.2 Prosthetic and other implants, materials and accessory cardiovascular devices associated with adverse incidents; I13.2 Hypertensive heart and chronic kidney disease with heart failure and with stage 5 chronic kidney disease, or end stage renal disease; N18.6 End stage renal disease; Z99.2 Dependence on renal dialysis; E11.22 Type 2 diabetes mellitus with diabetic chronic kidney disease; E78.5 Hyperlipidemia, unspecified; E03.9 Hypothyroidism, unspecified; D63.1 Anemia in chronic kidney disease; Z87.891 Personal history of nicotine dependence; I50.9 Heart failure, unspecified; N25.81 Secondary hyperparathyroidism of renal origin; E86.9 Volume depletion, unspecified
CPT/HCPCS: 36415; 77001; 80053; 80069; 82947; 83735; 85014; 85018; 85025; 85610; 94760; 96372; 99284-25; A9270; C1752; G0257; G0378; J0690; J0881; J1100; J1644; J2370; J2405; J2704; J2795; J3010; J7030

== ENCOUNTER → 2022-11-14 | Outpatient (CLI) | payer MEDICARE, OTHER ==
[~2022-11-14] MED LIST changes: +OMEP20ER PO
== END ==
LOC: LAB SHORT 07:27 → PLD 07:27
DX: R23.8 Other skin changes (principal); R23.4 Changes in skin texture
CPT/HCPCS: 88341; 88342

== ENCOUNTER 2023-03-01 16:34 | Inpatient (IN) | payer OTHER ==
[~2023-03-01] VITALS: Ht 167.6 cm; Wt 85.1 kg
[2023-03-01 17:21] LABS: Source, Urine Clean Catch
[2023-03-01 17:24] LABS: BASOPHILS ABSOLUTE AUTO 0.06 K/mm3 (0.00-0.23); BASOPHILS PERCENT AUTO 0 % (0-2); EOSINOPHILS ABSOLUTE AUTO 0.01 K/mm3 (0.00-0.68); EOSINOPHILS PERCENT AUTO 0 % (0-6); Hematocrit 34.9 % (37.0-53.0); Hemoglobin 11.7 g/dL (13.5-17.5); IMMATURE GRAN ABSOLUTE AUTO 0.08 K/mm3 (0.00-0.10); IMMATURE GRAN PERCENT AUTO 0 % (0-1); LYMPHOCYTES PERCENT AUTO 1 % (21-46); MONOCYTES ABSOLUTE AUTO 1.17 K/mm3 (0.16-1.47); MONOCYTES PERCENT AUTO 6 % (4-13); Mean Corpuscular HGB 33.6 pg (26.0-34.0); Mean Corpuscular HGB Conc 33.5 g/dL (31.5-36.5); Mean Corpuscular Volume 100 fL (80-100); Mean Platelet Volume 10.8 fL (9.1-12.4); NEUTROPHILS ABSOLUTE AUTO 16.99 K/mm3 (1.96-9.15); NEUTROPHILS PERCENT AUTO 92 % (41-73); Platelet Count 153 K/mm3 (150-400); RDW Coefficient Variation 15.9 % (11.7-14.2); Red Blood Cell Count 3.48 M/mm3 (4.30-5.90); White Blood Cell Count 18.51 K/mm3 (4.00-11.30)
[2023-03-01 17:28] LABS: Appearance, Urine Clear (Clear); Bilirubin, Urine Neg (Neg); Blood, Urine 4+ (Neg); Color, Urine Yellow (P-Yellow); Glucose Qualitative, Urine 1+ (Neg); Ketones, Urine Neg (Neg); Leukocyte Esterase, Urine Neg (Neg); Nitrite, Urine Neg (Neg); Protein, Urine 3+ (Neg); Urobilinogen, Urine NORM (Normal); pH, Urine 6.5 (5.0-8.0)
[2023-03-01 17:43] LABS: Bacteria Rare /hpf; Hyaline Casts 0-2 /lpf (0-2); Squamous Epithelial Cells Not Seen /hpf (Few); White Blood Cells, Urine 0-2 /hpf (0-5)
[2023-03-01 17:45] LABS: Albumin/Globulin Ratio 0.7 (0.8-1.8); Bilirubin, Total 0.9 mg/dL (0.1-1.0); Bun/Creatinine Ratio 11.4 (12.0-20.0); Calcium, Blood 9.1 mg/dL (8.5-10.1); Creatinine, Blood 6.73 mg/dL (0.60-1.20); Globulin, Blood 4.2 g/dL (2.2-4.0); Potassium, Blood 5.1 mmol/L (3.5-5.5); Total Protein, Blood 7.2 g/dL (6.4-8.2)
[2023-03-01 20:05] LABS: Influenza A, PCR NEGATIVE (NEGATIVE); Influenza B, PCR NEGATIVE (NEGATIVE); Resp Syncytial Virus, PCR NEGATIVE (NEGATIVE); SARS-Cov-2 (COVID-19) PCR, MMC NEGATIVE (NEGATIVE)
--- NOTE | 2023-03-01 23:17 | NUR ---
EMERGING TECHNOLOGIES DIRECTOR IN TO ASSESS PT CVC AND COLLECT BLOOD CX PER MD ORDER. EXIT SITE RED AND SWOLLEN, DRSG CHANGE COMPLETED AND THICK PURULENT GREEN DRAINING FROM EXIT SITE NOTED ON PALPATION OF TUNNEL, EXIT SITE CULTURE OBTAINED AND BLOOD CULTURES COLLECTED FROM EACH LIMB OF CVC OER MD ORDER. NEW CHG DRSG APPLIED, ATH PATENT, CLAMPED, CAPPED AND SECURED. HAND OFF REPORT GIVEN TO RESIDENTIAL PROPERTY TAX APPRAISERLAURA KOENIG.
--- NOTE | 2023-03-01 23:23 | NUR ---
PATIENT ARRIVED TO PCU 14 FROM ED VIA [facility] WITH SEPSIS. CONTINUES TO HAVE FEVER 101, AND HAVING CHILLS. PATIENT TX TO PCU BED AND PLACED ON MONITORS. PERMACATH TO LEFT CHEST RED AND SWOLLEN AROUND INSERTION SITE. DRESSING CHANGED AND CULTURE OF SITE, AND FROM LINE OBTAINED BY DIALYSIS NURSE BEFORE PATIENT ARRIVING TO PCU. DOCTOR MCCLELLAN IN TO SEE PATIENT, SEE NEW ORDERS. PATIENT LETHARGIC AWAKENS TO VERBAL STIMULI. ANSWERING QUESTIONS APPROPRIATELY.
[2023-03-01 23:30] VITALS: BP 168/80
[2023-03-01 23:39] VITALS: BP 168/80
[2023-03-02] VITALS (19 sets, daily range): BP systolic 83–174; BP diastolic 41–102
[2023-03-02 04:21] LABS: BASOPHILS ABSOLUTE AUTO 0.07 K/mm3 (0.00-0.23); BASOPHILS PERCENT AUTO 1 % (0-2); EOSINOPHILS PERCENT AUTO 0 % (0-6); Hematocrit 33.8 % (37.0-53.0); Hemoglobin 11.3 g/dL (13.5-17.5); IMMATURE GRAN ABSOLUTE AUTO 0.08 K/mm3 (0.00-0.10); IMMATURE GRAN PERCENT AUTO 1 % (0-1); LYMPHOCYTES PERCENT AUTO 1 % (21-46); MONOCYTES ABSOLUTE AUTO 0.91 K/mm3 (0.16-1.47); MONOCYTES PERCENT AUTO 7 % (4-13); Mean Corpuscular HGB 33.5 pg (26.0-34.0); Mean Corpuscular HGB Conc 33.4 g/dL (31.5-36.5); Mean Corpuscular Volume 100 fL (80-100); Mean Platelet Volume 10.4 fL (9.1-12.4); NEUTROPHILS ABSOLUTE AUTO 12.76 K/mm3 (1.96-9.15); NEUTROPHILS PERCENT AUTO 91 % (41-73); Platelet Count 140 K/mm3 (150-400); RDW Coefficient Variation 16.1 % (11.7-14.2); RDW Standard Deviation 59.6 fL (35.1-46.3); Red Blood Cell Count 3.37 M/mm3 (4.30-5.90); White Blood Cell Count 14.02 K/mm3 (4.00-11.30)
[2023-03-02 04:43] LABS: Albumin, Blood 2.5 g/dL (3.4-5.0); Albumin/Globulin Ratio 0.7 (0.8-1.8); Bilirubin, Total 0.8 mg/dL (0.1-1.0); Bun/Creatinine Ratio 11.7 (12.0-20.0); Calcium, Blood 8.8 mg/dL (8.5-10.1); Creatinine, Blood 6.81 mg/dL (0.60-1.20); Globulin, Blood 3.8 g/dL (2.2-4.0); Magnesium, Blood 2.1 mg/dL (1.6-2.4); Phosphorus, Blood 3.4 mg/dL (2.5-4.9); Potassium, Blood 4.5 mmol/L (3.5-5.5); Total Protein, Blood 6.3 g/dL (6.4-8.2)
--- NOTE | 2023-03-02 07:20 | NUR ---
Received report from Deena KOENIG. Patient was sleeping when entering room and awakened easily during report. He is alert and oriented with some confusing statements, but able to communicate needs and use call light. He is on 2L O2 and sats >90%. He has 20ga IV in RAC and is currently SL'd. He is indepenednt in bed and is weak with ambulation and needs assist. He has been instructed not to get up and call light on. He has bruising and old skin tears to UE's bilaterally.No current needs. He has been febrile and temp 102.1
--- NOTE | 2023-03-02 07:47 | NUR ---
SUMMARY PATIENT SLEEPING OFF AND ON T/O NIGHT. AWAKENS TO VERBAL STIMULI. GENERALIZED WEAKNESS CONTINUES, AT TIMES APPEARS TO HAVE TREMORS TO UPPER EXTREMITIES. USING THE URINAL FREQUENTLY T/O NIGHT VOIDING SMALL AMT OF MILVIA URINE EACH TIME. POST VOID BLADDER SCAN DONE SHOWING 63 CC IN BLADDER. TEMP OF 102 CONTINUES, FAN IN ROOM.
--- NOTE | 2023-03-02 08:00 | NUR ---
Received report from Deena Victor. Patient was sleeping during report and has been up all night. She is up frequently for soft stool and urination. She is on RA and sats >90%. Her Potassium finished and lab is here to draw. She is currently up using bathroom and just finished breakfast. Refilled her water and ice cups. She is up with assist to bedside cammode. She is independent in bed and assist with all other care. She has DAMIR powerglide and 18ga RAC, both flushed and SL'd.
[2023-03-02 08:26] LABS: Vancomycin, Random 21.4 ug/mL
--- NOTE | 2023-03-02 12:15 | NUR ---
Patient left for dialysis at 0820 and back at 1207. at bedside prior to coming back. He is very tired with shivers. He is alert and able to answers questions. temp when getting back 99.6. Charge Nurse left message for Dr De La Cruz for new placement trialysis cath.
--- NOTE | 2023-03-02 13:00 | NUR ---
Patient back from Dialysis 1207 and is verbal and very tired. He wanted to get up and try bedside cammode and was a heavy 2 person transfer. Gave bed bath and linen change. Bill from [facility] awaiting and agfter getting patiemnt back to bed he vomited some breakfast and cleaned and changed gown. at bedside. He remains very weak and tired and is very weak and unable to hold extremities up. He continues on 2L O2 via NC and sats >90%. Abx infusing.
[2023-03-03] VITALS (22 sets, daily range): BP systolic 89–135; BP diastolic 51–77
[2023-03-03 03:54] LABS: Hematocrit 32.1 % (37.0-53.0); Hemoglobin 10.3 g/dL (13.5-17.5); Mean Corpuscular HGB 32.8 pg (26.0-34.0); Mean Corpuscular HGB Conc 32.1 g/dL (31.5-36.5); Mean Corpuscular Volume 102 fL (80-100); Mean Platelet Volume 10.9 fL (9.1-12.4); Platelet Count 114 K/mm3 (150-400); RDW Coefficient Variation 16.1 % (11.7-14.2); RDW Standard Deviation 61.4 fL (35.1-46.3); Red Blood Cell Count 3.14 M/mm3 (4.30-5.90); White Blood Cell Count 9.37 K/mm3 (4.00-11.30)
[2023-03-03 04:18] LABS: Albumin, Blood 2.6 g/dL (3.4-5.0); Albumin/Globulin Ratio 0.7 (0.8-1.8); Bun/Creatinine Ratio 10.4 (12.0-20.0); Calcium, Blood 8.3 mg/dL (8.5-10.1); Creatinine, Blood 5.1 mg/dL (0.60-1.20); Globulin, Blood 3.6 g/dL (2.2-4.0); Phosphorus, Blood 3.5 mg/dL (2.5-4.9); Potassium, Blood 3.7 mmol/L (3.5-5.5); Total Protein, Blood 6.2 g/dL (6.4-8.2)
--- NOTE | 2023-03-03 05:51 | NUR ---
END OF SHIFT SUMMARY PT REMAINS A/O, MAKES NEEDS KNOWN. SR AT BEGINNING OF SHIFT, TRANSITIONED INTO A-FIB, RATE CONTROLLED, PT HAS HISTORY OF A-FIB. MAP > 65. LUNGS CTA, ON 2L NC. SIPS OF WATER, TOLERATED WELL. INCONTINENT OF BM X2. INCONTINENT VOIDS. BRIEF IN PLACE. ENCOURAGED TO MOVE FREQUENTLY IN BED, PT VERBALIZES UNDERSTANDING. SKIN WITH RAISED AREA ON LEFT BUTTOCK, PT STATES THIS HAS BEEN HERE FOR YEARS, STATES HE USUALLY COVERS IT WITH A BANDAID. PIV X1, FLUSHES WELL. NO FAMILY AT BEDSIDE, NO CALLS FOR UPDATES. RN TO CONTINUE TO MONITOR.
--- NOTE | 2023-03-03 09:03 | NUR ---
ASSUMPTION OF CARE PATIENT AO TO PERSON, PLACE, TIME, & SITUATION. VSS. STATES THAT PAIN IS TOLERABLE AT THIS TIME, PLAN TO IMPLEMENT PHARMACOLOGICAL/NONPHARMACOLOGICAL METHODS PRN. PERMACATH TO L CHEST WALL APPEARS RED/INFLAMMED, IS NOT PAINFUL TO TOUCH. POSSIBLE PERMACATH REMOVAL TODAY, NPO SINCE MIDNIGHT EXCEPT FOR SMALL SIPS W/ MEDICATIONS. PATIENT IS CURRENTLY BED MOBILE, ABLE TO TURN W/ MINIMAL ASSIST DURING ATTENDS CHANGE & MORNING CARE. PT TRANSFERRED TO DIALYSIS AT 0830.
[2023-03-03 09:56] LABS: Vancomycin, Random 20.7 ug/mL
--- NOTE | 2023-03-03 15:37 | NUR ---
Case Conference: Spoke with [facility], he reports the pt does not have to remain NPO for perma-cath removal, regardless of if it's at bedside or in the wheelabrator operator. Informed PCU bedside RN Moira, she is going to let the pt eat. Pt's at bedside, she states she "Talked to Dr. Alvarado and he said it isn't time yet, so we don't have any need for Palliative Care". I explained we do much more than end of life, but she did not seem open or receptive at this time.
--- NOTE | 2023-03-03 17:18 | NUR ---
SHIFT SUMMARY NO ACUTE CHANGES THIS SHIFT, VSS. HEMODIALYSIS PERFORMED THIS MORNING, PATIENT SLEPT PERIODICALLY FOLLOWING HEMODIALYSIS. PRESENT AT BEDSIDE THROUGHOUT SHIFT, SUPPORTIVE WITH CARE & RECEPTIVE TO EDUCATION. NO VOID THIS SHIFT POST HEMODIALYSIS. HEMODIALYSIS CATHETER TO BE REMOVED THIS SHIFT, TRANSFERRED OUT OF UNIT FOR PROCEDURE AT 1715. WILL CONTINUE TO MONITOR FOLLOWING PROCEDURE AND REPORT TO ONCOMING RN.
--- NOTE | 2023-03-03 18:05 | NUR ---
POST PERMACATH REMOVAL PATIENT RETURNED TO UNIT AT 1755. POD 0 PERMACATH REMOVAL FROM L CHEST WALL, GAUZE & TAPE DRESSING, SCANT RED SHADOWING ASSESSED. VSS, SOFT BP OF 90/59, WILL CONTINUE TO MONITOR VS. CURRENTLY ON 2L VIA NC FOR COMFORT. PATIENT REPORTS NO PAIN AT THIS TIME. PLAN FOR POSSIBLE PERMACATH PLACEMENT TOMORROW DEPENDING ON BLOOD CULTURES. PATIENT DECLINES DINNER TRAY AT THIS TIME, NO CURRENT NEEDS.
[2023-03-04] VITALS (8 sets, daily range): BP systolic 84–128; BP diastolic 60–70
[2023-03-04 03:35] LABS: Hemoglobin 9.8 g/dL (13.5-17.5)
[2023-03-04 04:03] LABS: Albumin, Blood 2.8 g/dL (3.4-5.0); Anion Gap 11 mmol/L (6-16); Blood Urea Nitrogen 48 mg/dL (8-24); Bun/Creatinine Ratio 9.2 (12.0-20.0); CO2, Blood 28 mmol/L (21-32); Calcium, Blood 8.3 mg/dL (8.5-10.1); Chloride, Blood 99 mmol/L (98-108); Creatinine, Blood 5.19 mg/dL (0.60-1.20); Glomerular Filtration Rate 10 (60-); Glucose, Blood 123 mg/dL (70-99); Phosphorus, Blood 3.5 mg/dL (2.5-4.9); Potassium, Blood 3.6 mmol/L (3.5-5.5); Sodium, Blood 138 mmol/L (136-145)
--- NOTE | 2023-03-04 06:54 | NUR ---
SHIFT SUMMARY PATIENT ALERT AND ORIENTED X4, ON BEDREST. PATIENT HAS BEEN INCONTINENT OVERNIGHT. PATIENT'S PERMCATH SITE CONTINUOUSLY OOZING BLOOD, DRESSINGS CHANGED NEEDED. BLOOD PRESSURE IN THE 90'S SYSTOLIC, AFIB 90'S-110'S ON TELE. PATIENT DENIES SHORTNESS OF BREATH OR CHEST PAIN. SPO2 90'S ON 2 LITERS O2 VIA NC. WILL CONTINUE TO MONITOR. CALL LIGHT WITHIN REACH.
--- NOTE | 2023-03-04 09:20 | NUR ---
ASSUMPTION OF CARE ASSUMED CARE OF PATIENT AT 0700. VSS. PATIENT IS DROWSY, EASILY AWOKEN TO VERBAL STIMULI. S/P PERMACATH REMOVAL FROM L CHEST WALL. SITE IS DRAINING LARGE AMOUNT OF BLOOD, REQUIRING FREQUENT DRESSING CHANGES. GAUZE, ABD PAD, & TAPE DRESSING IN PLACE. CURRENTLY NPO FOR POSSIBLE NEW PERMACATH PLACEMENT EXCEPT FOR MEDS GIVEN WITH A SIP OF WATER. PATIENT COOPERATIVE W/ MORNING CARE, ABLE TO TURN IN BED W/ MINIMAL ASSIST. PATIENT REPORTS USING FWW AT HOME, PLANNING ON ADVANCING MOBILITY TOLERATED. 2P ASSIST OOB. DR. COLE TO BEDSIDE, PLAN FOR ECHOCARDIOGRAM TODAY. RCVD ORDER FOR STATUS CHANGE TO MEDICAL FLOOR. PATIENT IS CURRENTLY SLEEPING, CALL LIGHT WITHIN REACH.
--- NOTE | 2023-03-04 18:34 | NUR ---
SHIFT SUMMARY PT AOX4, EASILY AROUSABLE TO VERBAL STIMULI. S/P PERMACATH REMOVAL, DRAINING LARGE AMOUNT OF BLOOD REQUIRING FREQUENT DRESSING CHANGES, GAUZE & TAPE DRESSING IN PLACE. PT OOB TO CHAIR W/ MODERATE ASSIST FROM STAFF W/ FWW. INCONTINENT OF URINE & INCONTINENT OF STOOL, FREQUENT LOOSE STOOLS THIS SHIFT. ATTENDS IN PLACE. STATUS CHANGE TO MEDICAL IN AM. ATTEMPTED TO TRANSFER IN AFTERNOON. WHILE IN WHEELCHAIR, PT STATED THAT HE FELT DIZZY AND LIGHT HEADED, LIKE HE MIGHT PASS OUT. CBG OBTAINED, VS TAKEN. BP SOFT T/O SHIFT. ASSESSED DELAYED CAP REFILL. NAIL BEDS NOTED TO BE BLUE IN COLOR. O2 SATS LOW 90S, PLACED ON 2L NC. BLAIR KOENIG NOTIFIED DR. COLE OF CHANGE, STATUS CHANGE BACK TO PCU. RCVD ORDER FOR MIDODRINE. MEDICATED PER ORDER. PT VERBALIZED FRUSTRATION T/O SHIFT REGARDING NPO STATUS & AWAITING PERMACATH PLACEMENT. PLAN FOR PERMACATH PLACEMENT CHANGED, POSSIBLE PLACEMENT 03/06/23. DINNER TRAY PROVIDED. WILL REPORT TO ONCROBIN RN.
[2023-03-05] VITALS (9 sets, daily range): BP systolic 94–146; BP diastolic 54–78
[2023-03-05 04:23] LABS: Hematocrit 26.8 % (37.0-53.0); Hemoglobin 8.9 g/dL (13.5-17.5)
[2023-03-05 04:39] LABS: Albumin, Blood 2.4 g/dL (3.4-5.0); Anion Gap 11 mmol/L (6-16); Blood Urea Nitrogen 71 mg/dL (8-24); CO2, Blood 28 mmol/L (21-32); Calcium, Blood 8.3 mg/dL (8.5-10.1); Chloride, Blood 100 mmol/L (98-108); Creatinine, Blood 7.09 mg/dL (0.60-1.20); Glomerular Filtration Rate 7 (60-); Glucose, Blood 113 mg/dL (70-99); Magnesium, Blood 2.2 mg/dL (1.6-2.4); Phosphorus, Blood 5.5 mg/dL (2.5-4.9); Potassium, Blood 3.4 mmol/L (3.5-5.5); Sodium, Blood 139 mmol/L (136-145)
--- NOTE | 2023-03-05 06:59 | NUR ---
SHIFT SUMMARY PATIENT ALERT AND ORIENTED X4. HAD NO COMPLAINTS OF PAIN OR SHORTNESS OF BREATH. PATIENT ON 2 LITERS O2 VIA NC, VITAL SIGNS STABLE. DRESSING ON PERMCATH SITE CHANGED NEEDED. NO ACUTE ISSUES NOTED OVERNIGHT. WILL CONTINUE TO MONITOR. CALL LIGHT WITHIN REACH.
--- NOTE | 2023-03-05 10:08 | NUR ---
ASSUMPTION OF CARE ASSUMED CARE AT 0700. PT AOX4, EASILY AROUSABLE TO VERBAL STIMULI. BP SOFT, SYSTOLIC 90'S, MANAGING PER EMAR. PT TENDS TO OVERESTIMATE HIS ABILITIES AT THIS TIME AND CAN BE UNCOOPERATIVE W/ CARE. ABLE TO REDIRECT W/ FREQUENT PT EDUCATION REGARDING FALL PREVENTION AND SAFETY. PT OOB W/ MODERATE ASSIST FWW, WAS ABLE TO AMBULATE TO THE RESTROOM FOR BM. POD 2 L PERMACATH RMVL, DRAINING MODERATE AMOUNT OF RED BLOOD REQUIRING FREQUENT DRESSING CHANGES. GUAZE AND TAPE DRESSING IN PLACE. REDUCED REDNESS AND MINOR BRUISING ASSESSED AROUND SITE. PT REPORTS NO PAIN AT THIS TIME. PT TOLERATING PO INTAKE. ABLE TO INDEPENDENTLY PERFORM PERSONAL ACTS OF CARE. CALL LIGHT WITHIN REACH.
--- NOTE | 2023-03-05 17:21 | NUR ---
SHIFT SUMMARY NO ACUTE CHANGES THIS SHIFT. VSS. SOFT BP's ASSESSED T/O SHIFT, MIDRONINE ADMINISTERED ORDERED. SBP BEGAN TRENDING UP LATER IN THE SHIFT, SBP >120, HELD 1800 DOSE OF MIDRONINE ORDERED. PT CONVERTED FROM AFIB 90's-110's TO SINUS RHYTHM 60-70's AT 1420, SUSTAINING NOW. PT AMBULATING TO CHAIR AND RESTROOM W/ 1P MINIMAL ASSIST W/ FWW. PT VOIDING W/O DIFFICULTY. MULTIPLE LOOSE STOOLS, REPORTED BY PT. ATTENDS IN PLACE PT EXPERIENCES INTERMITTENT EPISODES OF INCONTINENCE. POD 2 PERMACATH RMVL, DRAINAGE BEGAN TO DECREASE T/O SHIFT. REQUIRING LESS DRESSING CHANGES, GAUZE & TAPE DRESSING IS IN PLACE, IS C/D/I. PT NPO AT MIDNIGHT FOR POSSIBLE PERMACATH PLACEMENT TOMORROW, 03/06/23, BY DR. FOUNTAIN. WILL REPORT TO ONCOMING RN.
[2023-03-06] VITALS (26 sets, daily range): BP systolic 98–166; BP diastolic 54–83
[2023-03-06 04:54] LABS: Hematocrit 23.7 % (37.0-53.0)
[2023-03-06 05:33] LABS: Magnesium, Blood 2.2 mg/dL (1.6-2.4)
[2023-03-06 05:49] LABS: Albumin, Blood 2.4 g/dL (3.4-5.0); Anion Gap 13 mmol/L (6-16); Blood Urea Nitrogen 92 mg/dL (8-24); CO2, Blood 24 mmol/L (21-32); Calcium, Blood 8.1 mg/dL (8.5-10.1); Chloride, Blood 99 mmol/L (98-108); Glucose, Blood 141 mg/dL (70-99); Phosphorus, Blood 5.8 mg/dL (2.5-4.9); Potassium, Blood 3.8 mmol/L (3.5-5.5); Sodium, Blood 136 mmol/L (136-145)
[2023-03-06 05:52] LABS: Bun/Creatinine Ratio 11.1 (12.0-20.0); Glomerular Filtration Rate 6 (60-)
--- NOTE | 2023-03-06 07:00 | NUR ---
SHIFT SUMMARY PATIENT ALERT AND ORIENTED X4. 1 ASSIST TO BATHROOM WITH FRONT WHEEL WALKER. HAD NO COMPLAINTS OF PAIN OR SHORTNESS OF BREATH. ON HOME DOSE O2. VITAL SIGNS STABLE. CONVERTED FROM AFIB TO SINUS RHYTHM ON TELE. NO ACUTE ISSUES NOTED OVERNIGHT. WILL CONTINUE TO MONITOR. CALL LIGHT WITHIN REACH.
--- NOTE | 2023-03-06 09:36 | NUR ---
20G 8CM IV IN RIGHT UPPER ARM, FLOWS WELL TO GRAVITY
--- NOTE | 2023-03-06 14:17 | NUR ---
ASSUMED CARE OF PT AT 0700 THIS AM. PT REMAINS NPO AND HEPARIN HELD. PT TO SURGERY ARPX 0900. PT RETURNED TO ROOM APROX 1300, SUCESSFUL PERMACATH PLACEMENT WITH NO COMPLICATIONS PER REPORT. LUIS DANIEL HD RN, MADE AWARE OF PERMACATH PLACEMENT FOR HD, SHE STATES SHE WILL NOTIFY DR MCCLELLAN FOR HD ORDERS. PT AWAKE AND ALERT, ABLE TO USE CALL LIGHT FOR NEEDS, CALL LIGHT IN REACH. WILL CONTINUE TO MONITOR AND CARE FOR PT.
--- NOTE | 2023-03-06 17:37 | NUR ---
NO ACUTE EVENTS SINCE LAST NOTE. PT HAD HD IN ROOM, 1L REMOVED, PT TOLERATED WELL. PT ABLE TO USE CALL LIGHT FOR NEEDS, CALL LIGHT IN REACH, WILL CONTINUE TO MONITOR AND GIVE REPORT TO NOC SHIFT RN.
[2023-03-07] VITALS (13 sets, daily range): BP systolic 116–151; BP diastolic 38–79
[2023-03-07 04:47] LABS: Hematocrit 23.7 % (37.0-53.0)
--- NOTE | 2023-03-07 04:49 | NUR ---
SHIFT SUMMARY PT A&Ox4, CALLS AND COMMUNICATES NEEDS APPROPRIATELY. BP STABLE, NOT ON TELE, HR 60's, DENIES CP/PRESSURE. SpO2> 92% ON RA WHILE AWAKE, 2L VIA NC WHILE ASLEEP. CONTINENT OF URINE AND BOWEL, SBA w/ FWW TO BATHROOM. PERMACATH REMAINED UNCHANGED, WITH MILD AMOUNT OF OOZING PRESENT SINCE ASSUMPTION OF CARE. NO OTHER EVENTS, WILL REPORT TO ONCOMING RN.
[2023-03-07 05:02] LABS: Albumin, Blood 2.5 g/dL (3.4-5.0); Anion Gap 9 mmol/L (6-16); Blood Urea Nitrogen 62 mg/dL (8-24); Bun/Creatinine Ratio 9.6 (12.0-20.0); CO2, Blood 28 mmol/L (21-32); Calcium, Blood 7.9 mg/dL (8.5-10.1); Chloride, Blood 96 mmol/L (98-108); Creatinine, Blood 6.49 mg/dL (0.60-1.20); Glomerular Filtration Rate 8 (60-); Glucose, Blood 173 mg/dL (70-99); Sodium, Blood 133 mmol/L (136-145)
--- NOTE | 2023-03-07 14:55 | NUR ---
ASSUMED CARE OF PT AT 0700. NO ACUTE CHANGES OVERNIGHT. PT TO HD THIS AM. PLANS TO DISCHARGE TODAY, PT NEEDS 10 DAYS OF OUT PT INFUSING ABX. STAFF CLIMATE SCIENTIST FADUMO WORKED OUT INSURANCE AUTH AND PT IS NOW SCHEDULED FOR OUT PT INFUSION STARTING TOMORROW. PT'S MED REC COMPLETED WITH . DR HOOKER TO UPDATE DISCHARGE MEDICATIONS. NEW PRESCRIPTIONS WILL BE SENT TO [facility] PER PT REQUEST. SEE DISCHARGE NOTE.
--- NOTE | 2023-03-07 16:40 | NUR ---
PT DISCHARGED HOME WITH AT APROX 1635, ALL BELONGINGS SENT HOME WITH PT. DISCHARGE TEACHING, FOLLOW APPOINTMENTS AND MEDICATION LIST REVIEWED WITH PT AND HIS , NO QUESTIONS OR CONCERNS AT THIS TIME. PT IS SCHEDULED TO START INFUSIONS TOMORROW AND MOHIT FOLLOW UP WITH HD PER SCHEDULE. POWERGLIDE IV CARE AND PERMACATH SITE CARE REVIEWED WITH PT/, VERBALIZED UNDERSTANDING. NO FURTHER DISCHARGE NEEDS IDENTIFIED AT THIS TIME.
== END 2023-03-07 16:35 | disposition home or self-care (01) | DRG 280 ==
LOC: ER 16:34 → PCU 20:41
PROVIDERS: Emergency Medicine; Internal Medicine Nephrology; Nurse Practitioner Acute Care; Student in an Organized Health Care Education/Training Program; Surgery; ADMIT Internal Medicine
PROC: 5A1D70Z Performance of Urinary Filtration, Intermittent, Less than 6 Hours Per Day (ICD-10-PCS; 2023-03-03)
PROC: 0JPT3XZ Removal of Tunneled Vascular Access Device from Trunk Subcutaneous Tissue and Fascia, Percutaneous Approach (ICD-10-PCS; 2023-03-03)
PROC: 02HV33Z Insertion of Infusion Device into Superior Vena Cava, Percutaneous Approach (ICD-10-PCS; 2023-03-06)
PROC: B518ZZA Fluoroscopy of Superior Vena Cava, Guidance (ICD-10-PCS; 2023-03-06)
PROC: B548ZZA Ultrasonography of Superior Vena Cava, Guidance (ICD-10-PCS; 2023-03-06)
PROC: 0JH63XZ Insertion of Tunneled Vascular Access Device into Chest Subcutaneous Tissue and Fascia, Percutaneous Approach (ICD-10-PCS; principal; 2023-03-06 11:15)
DX: T82.7XXA Infection and inflammatory reaction due to other cardiac and vascular devices, implants and grafts, initial encounter (principal); N18.6 End stage renal disease; I21.A1 Myocardial infarction type 2; E87.1 Hypo-osmolality and hyponatremia; I13.2 Hypertensive heart and chronic kidney disease with heart failure and with stage 5 chronic kidney disease, or end stage renal disease; Y83.8 Other surgical procedures as the cause of abnormal reaction of the patient, or of later complication, without mention of misadventure at the time of the procedure; I50.9 Heart failure, unspecified; I48.0 Paroxysmal atrial fibrillation; Z66 Do not resuscitate; E78.00 Pure hypercholesterolemia, unspecified; E11.22 Type 2 diabetes mellitus with diabetic chronic kidney disease; M54.9 Dorsalgia, unspecified; J44.9 Chronic obstructive pulmonary disease, unspecified; I35.0 Nonrheumatic aortic (valve) stenosis; H18.519 Endothelial corneal dystrophy, unspecified eye; G89.29 Other chronic pain; E88.09 Other disorders of plasma-protein metabolism, not elsewhere classified; E03.9 Hypothyroidism, unspecified; D63.1 Anemia in chronic kidney disease; F41.9 Anxiety disorder, unspecified; E86.9 Volume depletion, unspecified; Z20.822 Contact with and (suspected) exposure to COVID-19; K21.9 Gastro-esophageal reflux disease without esophagitis; B95.61 Methicillin susceptible Staphylococcus aureus infection as the cause of diseases classified elsewhere; F03.90 Unspecified dementia, unspecified severity, without behavioral disturbance, psychotic disturbance, mood disturbance, and anxiety; N40.0 Benign prostatic hyperplasia without lower urinary tract symptoms; E83.39 Other disorders of phosphorus metabolism; I25.10 Atherosclerotic heart disease of native coronary artery without angina pectoris; E87.5 Hyperkalemia; Z95.5 Presence of coronary angioplasty implant and graft; Z88.7 Allergy status to serum and vaccine; Z88.8 Allergy status to other drugs, medicaments and biological substances; Z91.048 Other nonmedicinal substance allergy status; Z79.891 Long term (current) use of opiate analgesic; Z79.899 Other long term (current) drug therapy; Z79.890 Hormone replacement therapy; Z79.82 Long term (current) use of aspirin; Z79.4 Long term (current) use of insulin; Z79.02 Long term (current) use of antithrombotics/antiplatelets; Z99.2 Dependence on renal dialysis; Z90.49 Acquired absence of other specified parts of digestive tract; Z98.890 Other specified postprocedural states
CPT/HCPCS: 0241U; 36415; 71045; 76604; 77001; 80053; 80069; 80202; 81001; 82947; 83605; 83735; 84100; 84484; 85014; 85018; 85025; 85027; 87040; 87070; 87075; 87077; 87147; 87186; 87205; 93005; 93010; 93308; 93321; 94760; 94762; 96365; 96366; 96375; 99285-25; A9270; C1894; J0690; J0881; J1100; J1644; J1815; J2371; J2405; J2543; J2700; J2704; J3010; J3370; J7030; J7050; P9046

== ENCOUNTER 2023-03-08 09:38 | Day surgery (SDC) | payer MEDICARE, OTHER ==
[2023-03-08 09:43] VITALS: BP 135/61
== END 2023-03-08 10:20 | disposition home or self-care (01) ==
LOC: ATC 09:38
DX: R78.81 Bacteremia (principal); B95.61 Methicillin susceptible Staphylococcus aureus infection as the cause of diseases classified elsewhere; I12.0 Hypertensive chronic kidney disease with stage 5 chronic kidney disease or end stage renal disease; E11.22 Type 2 diabetes mellitus with diabetic chronic kidney disease; N18.6 End stage renal disease; E78.5 Hyperlipidemia, unspecified; J44.9 Chronic obstructive pulmonary disease, unspecified; I35.0 Nonrheumatic aortic (valve) stenosis; G89.29 Other chronic pain; E03.9 Hypothyroidism, unspecified; K21.9 Gastro-esophageal reflux disease without esophagitis; I48.0 Paroxysmal atrial fibrillation; Z88.7 Allergy status to serum and vaccine; Z88.6 Allergy status to analgesic agent; Z79.899 Other long term (current) drug therapy
CPT/HCPCS: 96365; J0696

== ENCOUNTER 2023-03-09 08:14 | Day surgery (SDC) | payer MEDICARE, OTHER ==
[2023-03-09 10:16] VITALS: BP 148/82
[2023-03-09 10:30] VITALS: BP 139/80
[2023-03-09 11:36] VITALS: BP 154/68
== END 2023-03-09 12:00 | disposition home or self-care (01) ==
LOC: ATC 08:14
DX: R78.81 Bacteremia (principal); B95.61 Methicillin susceptible Staphylococcus aureus infection as the cause of diseases classified elsewhere; I12.0 Hypertensive chronic kidney disease with stage 5 chronic kidney disease or end stage renal disease; E11.22 Type 2 diabetes mellitus with diabetic chronic kidney disease; N18.6 End stage renal disease; E78.5 Hyperlipidemia, unspecified; J44.9 Chronic obstructive pulmonary disease, unspecified; E03.9 Hypothyroidism, unspecified; I48.0 Paroxysmal atrial fibrillation; K21.9 Gastro-esophageal reflux disease without esophagitis; Z87.891 Personal history of nicotine dependence; Z88.7 Allergy status to serum and vaccine; Z88.6 Allergy status to analgesic agent
CPT/HCPCS: J0696

== ENCOUNTER 2023-03-11 01:19 | Day surgery (SDC) | payer MEDICARE, OTHER ==
[2023-03-11 11:34] VITALS: BP 118/59
== END 2023-03-11 12:02 | disposition home or self-care (01) ==
LOC: ATC 01:19
DX: R78.81 Bacteremia (principal); B95.61 Methicillin susceptible Staphylococcus aureus infection as the cause of diseases classified elsewhere; E11.22 Type 2 diabetes mellitus with diabetic chronic kidney disease; I12.0 Hypertensive chronic kidney disease with stage 5 chronic kidney disease or end stage renal disease; N18.6 End stage renal disease; I25.10 Atherosclerotic heart disease of native coronary artery without angina pectoris; E78.5 Hyperlipidemia, unspecified; J44.9 Chronic obstructive pulmonary disease, unspecified; F41.9 Anxiety disorder, unspecified; I48.0 Paroxysmal atrial fibrillation; E03.9 Hypothyroidism, unspecified; R77.8 Other specified abnormalities of plasma proteins; R74.01 Elevation of levels of liver transaminase levels; K21.9 Gastro-esophageal reflux disease without esophagitis; Z99.2 Dependence on renal dialysis; Z95.5 Presence of coronary angioplasty implant and graft
CPT/HCPCS: 96365; J0696

== ENCOUNTER 2023-03-13 00:41 | Day surgery (SDC) | payer MEDICARE, OTHER ==
[2023-03-13 11:50] VITALS: BP 121/64
== END 2023-03-13 12:04 | disposition home or self-care (01) ==
LOC: ATC 00:41
DX: R78.81 Bacteremia (principal); A49.01 Methicillin susceptible Staphylococcus aureus infection, unspecified site; N18.6 End stage renal disease; I12.0 Hypertensive chronic kidney disease with stage 5 chronic kidney disease or end stage renal disease; E78.5 Hyperlipidemia, unspecified; E11.22 Type 2 diabetes mellitus with diabetic chronic kidney disease; J44.9 Chronic obstructive pulmonary disease, unspecified; F41.9 Anxiety disorder, unspecified; E03.9 Hypothyroidism, unspecified; I48.0 Paroxysmal atrial fibrillation; I35.0 Nonrheumatic aortic (valve) stenosis; K21.9 Gastro-esophageal reflux disease without esophagitis
CPT/HCPCS: 96365; J0696

== ENCOUNTER 2023-03-15 00:58 | Day surgery (SDC) | payer MEDICARE, OTHER ==
[2023-03-15 12:55] VITALS: BP 134/61
== END 2023-03-15 13:20 | disposition home or self-care (01) ==
LOC: ATC 00:58
DX: R78.81 Bacteremia (principal); N18.6 End stage renal disease; Z99.2 Dependence on renal dialysis; I12.0 Hypertensive chronic kidney disease with stage 5 chronic kidney disease or end stage renal disease; E78.5 Hyperlipidemia, unspecified; E11.22 Type 2 diabetes mellitus with diabetic chronic kidney disease; J44.9 Chronic obstructive pulmonary disease, unspecified; F41.9 Anxiety disorder, unspecified; E03.9 Hypothyroidism, unspecified; I48.0 Paroxysmal atrial fibrillation
CPT/HCPCS: 96365; J0696

== ENCOUNTER 2023-03-16 03:20 | Day surgery (SDC) | payer MEDICARE, OTHER ==
[2023-03-16 11:37] VITALS: BP 155/66
== END 2023-03-16 12:07 | disposition home or self-care (01) ==
LOC: ATC 03:20
DX: R78.81 Bacteremia (principal); B95.61 Methicillin susceptible Staphylococcus aureus infection as the cause of diseases classified elsewhere; I12.0 Hypertensive chronic kidney disease with stage 5 chronic kidney disease or end stage renal disease; E11.22 Type 2 diabetes mellitus with diabetic chronic kidney disease; N18.6 End stage renal disease; E78.5 Hyperlipidemia, unspecified; I25.10 Atherosclerotic heart disease of native coronary artery without angina pectoris; Z95.5 Presence of coronary angioplasty implant and graft; J44.9 Chronic obstructive pulmonary disease, unspecified; I48.0 Paroxysmal atrial fibrillation; E03.9 Hypothyroidism, unspecified; Z88.7 Allergy status to serum and vaccine; Z88.6 Allergy status to analgesic agent; Z88.5 Allergy status to narcotic agent
CPT/HCPCS: 96365; J0696

== ENCOUNTER 2023-05-17 04:29 | Emergency (ER) | payer MEDICARE, OTHER ==
[~2023-05-17] VITALS: Ht 172.7 cm; Wt 83.5 kg
[2023-05-17 14:45] VITALS: BP 100/55
== END 2023-05-17 15:41 | disposition home or self-care (01) ==
LOC: ER 04:29
DX: Z51.5 Encounter for palliative care (principal); I12.0 Hypertensive chronic kidney disease with stage 5 chronic kidney disease or end stage renal disease; E11.22 Type 2 diabetes mellitus with diabetic chronic kidney disease; N18.6 End stage renal disease; J44.9 Chronic obstructive pulmonary disease, unspecified; Z99.2 Dependence on renal dialysis; Z86.79 Personal history of other diseases of the circulatory system
CPT/HCPCS: 93005; 93010; 99285-25